=== PATIENT | male | born 1950 | race Caucasian/White ===

== ENCOUNTER 2016-05-24 09:49 | Outpatient (CLI) | payer BC ==
[~2016-05-24] VITALS: Ht 185.4 cm; Wt 120.5 kg
--- NOTE | ~2016-05-24 | HEMODYNAMI ---
PATIENT:FAHEEM TRUJILLO MEDICAL RECORD: [id number] : 52 LOCATION:D.CAT ADMISSION DATE: 05/24/16 Generatedon:05/24/201615:52 Patient name: FAHEEM TRUJILLO Patient #: [id number] SSN: : 1950 Date of study: 05/24/2016 Page: Of Hemodynamic Procedure Report Patient Data Patient Demographics Procedure consent was obtained First Name: FAHEEM Gender: Male Last Name: RONNIE : 1950 [facility] Initial: T Age: 66 year(s) Patient #: [id number] Race: Additional ID: [id number] Contact details Address: [address] [place] [address] State: [place] City: [facility] Zip code: [address] Past Medical History History of disease Date Diagnosis Comments CAD Allergies Allergen Reaction Date Comments Reported Zocor 09/30/2014 Other allergy 05/24/2016 simvastatin Admission Admission Data Admission Date: 05/24/2016 Admission Time: 9:49 Admit Source: Other Insurance Payor: Private health insurance Height (in.): 74 BSA: 2.45 (m2) Height (cm.): 187.96 BMI: 34.02 (kg/m2) Weight (lbs.): 265 Weight (kg.): 120.2 Medications upon Admission Medications Dosage Times Administered Last Remarks per Delivery Day Date and Time Prasugrel Yes 05/24/2016 0:00 Lab Results Lab Result Date: 05/24/2016 Lab Result Time: 13:30 Biochemistry Name Units Result Min Max Creatinine mg/dl 1.1 --(--*-)-- 0.6 1.3 CBC Name Units Result Min Max Hemoglobin g/dl 12.5 *-(----)-- 13.5 17.5 Procedure Procedure Types Cath Procedure Diagnostic Procedure [facility] w/Coronaries PCI Procedure Coronary Stent Initial Procedure Description Procedure Date Procedure Date: 05/24/2016 Procedure Start Time: 15:24 Procedure End Time: 15:38 Procedure Staff Name Function Amari George RT Assembler [employer] Devang Harris RT Scrub Quinn Burris RN Assembler [employer] Mitch Kaur RN Nurse Samuel Tee MD Performing Physician Christophe Anderson RT Monitor Procedure Data Cath Procedure Fluoroscopy Diagnostic fluoroscopy Total fluoroscopy Time: 4.5 time: 4.5 min min Diagnostic fluoroscopy Total fluoroscopy dose: 776 dose: 776 mGy mGy Contrast Material Contrast Material Type Amount (ml) Isovue 300 117 Entry Location Entry Primary Successful Side Size Upsize Upsize Entry Closure Succes sful Closure Location (Fr) 1 (Fr) 2 (Fr) Remarks Device Remarks Femoral Right 5 Fr 7 Fr Exoseal artery Short Estimated blood loss: 10 ml Diagnostic catheters Device Type Used For End Catheter Placement Cordis 5Fr Pigtail Procedure Catheter (MP) Cordis 5Fr JL 4.0 Procedure Catheter (MP) Cordis 5Fr 3DRC Catheter Procedure (MP) Cordis Infinity 5Fr JL 6 Procedure catheter Procedure Complications No complications Procedure Medications Medication Administration Route Dosage Oxygen NC 2 l/min Lidocaine 2% added to field 20 Heparin Flush Bag added to field 2 bags (1000units/500ml NS) 0.9% NaCl I.V. 100 ml/hr Refer to Anesthesia Notes for Sedation Medications Benadryl I.V. 50 mg Heparin Bolus I.V. 5000 units Hemodynamics Rest HGB: 12.5 (g/dl) Heart Rate: 67 (bpm) Snapshots Pre Cath Intra NCS Post Cath Vital Signs Time Heart Resp SPO2 etCO2 GE1hlya Respiration NIBP (mmHg) Rhythm Pain Sedation Rate (ipm) (%) (mmHg) (mmHg) (CO2) (ipm) Status Level (bpm) 14:55:31 68 12 99 39.8 3.7 12 144/86(116) NSR 0 (1 1) 10(A) , No pain 14:59:50 67 16 99 38.3 3.7 16 140/84(115) NSR 0 (1 1) 10(A) , No pain 15:04:06 69 17 96 42.1 0 15 126/76(98) NSR 0 (1 1) 10(A) , No pain 15:08:20 67 15 98 8.2 0 13 118/76(97) NSR 0 (1 1) 10(A) , No pain 15:12:30 71 13 93 36.1 2.2 8 126/84(94) NSR 0 (1 1) 10(A) , No pain 15:16:46 70 22 93 30.1 3.7 19 120/73(91) NSR 0 (1 1) 10(A) , No pain 15:21:01 70 18 94 36.1 3 18 123/70(95) NSR 0 (1 1) 10(A) , No pain 15:25:16 71 24 95 37.6 4.5 13 119/70(98) NSR 0 (1 1) 9(A) , No pain 15:29:33 67 16 97 47.4 3.7 17 118/67(94) NSR 0 (1 1) 8(A) , No pain 15:33:49 73 17 98 38.3 6 18 119/71(88) NSR 0 (1 1) 9(A) , No pain 15:38:03 73 16 97 47.4 4.5 16 131/73(97) NSR 0 (1 1) 10(A) , No pain Medications Time Medication Route Dose Verified Delivered Reason Notes Effectiveness by by 14:59:25 Oxygen NC 2 Samuel Pinaie used for l/min Nay Kaur RN procedure 15:00:08 Lidocaine 2% added 20ml Samuel Buffie used for to vial Nay Kaur RN procedure field 15:00:13 Heparin Flush added 2 Samuel Buffie used for Bag to bags Nay Kaur RN procedure (1000units/500ml field NS) 15:00:22 0.9% NaCl I.V. 100 Samuel Meyer Per physician ml/hr Nay Kaur RN 15:06:52 Refer to Samuel Meyer Anesthesia Notes Nay Kaur RN for Sedation Medications 15:07:01 Benadryl I.V. 50 mg Samuel Buffie used for Nay Kaur RN procedure 15:31:12 Heparin Bolus I.V. 5000 Samuel Meyer for verifi ed units Nay Kaur RN anticoagulation with dr tee Procedure Log Time Note 14:25:43 Quinn Burris RN sent for patient. Start room use. 14:42:16 Admit Source: Other 14:42:52 Time tracking: Regular hours 14:42:56 Plan of Care:Hemodynamics will remain stable., Cardiac rhythm will remain stable., Comfort level will be maintained., Respiratory function will remain adequate., Patient/ family verbilizes understanding of procedure., Procedure tolerated without complication., Recovers from procedure without complications.. 14:43:01 Patient received from Outpatients to [facility] 2 Alert and oriented. Tansferred to table in Supine position. 14:43:12 Warm blankets applied, and katia hugger turned on for patient comfort. 14:43:13 Correct patient and procedure confirmed by team. 14:43:14 Signed procedure consent form obtained from patient. 14:43:15 ECG and BP/O2 sat monitors applied to patient. 14:45:19 Dr Velasquez present and monitoring patient for TIVA. 14:54:24 Vital chart was started 14:54:54 Baseline sample Acquired. 14:56:25 Rhythm: sinus rhythm 14:56:27 Full Disclosure recording started 14:58:54 H&P Date Dictated: 05/24/2016 Within 30 days and on chart., H&P Addendum completed by physician on day of procedure. (MUST COMPLETE FOR ALL OUTPATIENTS). 14:58:55 Pre-op teaching completed and patient verbalized understanding. 14:58:55 Pre-procedure instructions explained to patient. 14:59:00 Family in waiting room. 14:59:02 Patient NPO since Midnight. 14:59:18 Patient allergic to Other allergysimvastatin 14:59:20 Is the patient allergic to Iodine/contrast media? No. 14:59:23 Is patient on blood thinner?Yes 14:59:25 Oxygen 2 l/min NC was given by Mitch Kaur RN; used for procedure; 15:00:08 Lidocaine 2% 20ml vial added to field was given by Mitch Kaur RN; used for procedure; 15:00:11 ACC The patient was administered the following blood thiners within the last 24 hours: ACCEffient 15:00:13 Patient diabetic? Yes. 15:00:13 Heparin Flush Bag (1000units/500ml NS) 2 bags added to field was given by Mitch Kaur RN; used for procedure; 15:00:14 If diabetic: On Metformin? No 15:00:17 Previous problem with sedation/anesthesia? No ? 15:00:18 Snore? Yes 15:00:19 Sleep apnea? Yes 15:00:20 Deviated septum? No 15:00:21 Opens mouth fully? Yes 15:00:22 Sticks out tongue? Yes 15:00:22 0.9% NaCl 100 ml/hr I.V. was given by Mitch Kaur RN; Per physician; 15:00:23 Airway obstruction? No ? 15:00:26 Dentures? No ? 15:00:29 Pre procedure: right dorsailis pedis pulse 2+ Normal; easily identifiable; not easily obliterated 15:00:33 Patient pain scale 0/10 ?. 15:00:55 IV patent on arrival in left wrist with 0.9% NaCl at [facility]. 15:03:14 Lab Result : Hemoglobin 12.5 g/dl 15:03:14 Lab Result : Creatinine 1.1 mg/dl 15:03:18 Lab results completed and on chart. 15:03:22 Right groin area was prepped with chlora-prep and draped in sterile fashion 15:03:24 Alarms reviewed by R. N. 15:03:25 Sharps counted by scrub and verified by R.N. 15:03:33 Use device set Femoral Dx 15:03:48 Acist Hand Control opened to sterile field. 15:03:48 Acist Manifold opened to sterile field. 15:03:49 Tegaderm 4 x 4 opened to sterile field. 15:03:50 Acist Syringe opened to sterile field. 15:03:51 Cardinal Cath Pack opened to sterile field. 15:03:51 Bag Decanter opened to sterile field. 15:03:52 St Vikas 260cm J .035 wire opened to sterile field. 15:03:52 Terumo 5Fr Cheshire Sheath opened to sterile field. 15:03:53 Cordis Infinity 5Fr Multipack catheter opened to sterile field. 15:04:13 ACC Patient presents with Stable Angina CCS Anginal Class 2--Slight limitation of ordinary activity. 15:04:18 Diagnostic Cath status Elective 15:04:43 Patient Weight : 265 lbs 15:04:50 Patient Height : 74 inches 15:04:50 Insurance Payor : Private health insurance 15:06:52 Refer to Anesthesia Notes for Sedation Medications was given by Mitch Kaur RN; ; 15:07:01 Benadryl 50 mg I.V. was given by Mitch Kaur RN; used for procedure; 15:08:09 Zero performed for pressure channel P1 15:23:50 Final Timeout: patient, procedure, and site verified with staff and physician. All members of the team are in agreement. 15::51 --------ALL STOP TIME OUT------ 15:23:52 Right groin site verified by team. 15::57 Physical assessment completed. ASA score P 3 - A patient with severe systemic disease as per Samuel Tee MD. 15::07 Sedation plan: TIVA Propofol 15:24:37 Procedure started. 15:24:41 Local anesthetic to right femoral artery with Lidocaine 2% by Samuel Tee MD.INITIAL ACCESS ONLY 15::53 A 5 Fr sheath was inserted into the Right Femoral artery 15:25:01 A Cordis 5Fr Pigtail Catheter (MP) was advanced over the wire and used for Procedure. 15:25:21 LV gram done using SO 15::24 Injector settings: Ml/sec: 10, Volume: 20, 15::53 EF : 55 % 15:25:55 Catheter exchanged over wire. 15:26:04 A Cordis 5Fr JL 4.0 Catheter (MP) was advanced over the wire and used for Procedure. 15:26:37 Catheter removed. unable to cannulate vessel. 15:27:27 A Cordis 5Fr 3DRC Catheter (MP) was advanced over the wire and used for Procedure. 15:27:32 RCA angiography performed. 15:27:49 Catheter removed. 15:27:56 A Cordis Infinity 5Fr JL 6 catheter was advanced over the wire and used for Procedure. 15:28:12 LCA angiography performed. 15:28:30 Terumo 7Fr Cheshire Sheath opened to sterile field. 15:28:42 Adams Whisper J 300cm 0.014 guide wire opened to sterile field. 15:28:44 CrowdMed BasixCompak Inflation Kit opened to sterile field. 15:29:16 Catavolttronic Launcher 7Fr HS II guide catheter opened to sterile field. 15:29:24 Catheter removed. 15:29:25 Proceeding to intervention. 15:29:41 Sheath upsized to a 7 Fr Short. 15::52 ACC PCI Site: dRCA has 90% stenosis. 15::53 ACC Pre-intervention FELIPE Flow is 1. 15:29:59 7 Fr HS II guide catheter was inserted over the wire 15:30:04 whisper wire advanced. 15:30:07 Wire advanced across lesion. 15:31:12 Heparin Bolus 5000 units I.V. was given by Mitch Kaur RN; for anticoagulation; verified with dr tee 15:33:48 Inflation Number: 1 A Medtronic Resolute 2.75 X 8 stent was prepped and advanced across the R PAV. The stent was deployed at 13 OMER for 0:10 (min:sec). 15:34:08 ACC Post-intervention FELIPE Flow is 3. 15:35:02 Cordis 7Fr Exoseal opened to sterile field. 15:35:07 Wire removed. 15:35:07 Stent catheter was removed intact over wire. 15:35:08 Guide catheter removed. 15:35:15 Sheath removed intact; hemostasis achieved with Exoseal to the Right Femoral artery. 15:35:18 Procedure ended.(Physican Out) 15:35:41 Fluoroscopy time 04.50 minutes. 15:35:45 Fluoroscopy dose: 776 mGy 15:35:45 Flurop Dose total: 776 15:35:49 Contrast amount:Isovue 300 117ml. 15:35:52 Sharps counted by scrub and verified by R.N. 15:36:02 Insertion/operative site no bleeding no hematoma. 15:36:03 Insertion/operative site no bleeding no hematoma. 15:36:06 Post-op/insertion site Right Femoral artery dressed using a 4 x 4 and Tegaderm. 15:36:16 Post right femoral artery:stable, soft, clean and dry 15:37:52 Post Procedure Pulses reassessed and unchanged 15:37:55 Post-procedure physical assessment completed. ASA score P 3 - A patient with severe systemic disease as per Samuel Tee MD. 15:37:58 Post procedure rhythm: unchanged. 15:38:03 Estimated blood loss: 10 ml 15:38:04 Patient needs reinforcement of post procedure teaching. 15:38:04 Post procedure instruction explained to patient.Patient verbalizes understanding. 15:38:11 Procedure type changed to Cath procedure, Diagnostic procedure, LHC, LHC w/Coronaries, PCI procedure, Coronary Stent Initial 15:38:31 Procedure and supply charges have been captured, reviewed, submitted and are correct. 15:38:33 Procedure Complication : No complications 15:38:36 Vital chart was stopped 15:38:38 See physician's report for complete and final results. 15:38:41 Report given to Post Procedure Room. 15:38:44 Patient transfered to Post Procedure Room with Stretcher. 15:38:46 Full Disclosure recording stopped 15:38:46 Procedure ended. 15:38:57 ACC-PCI Only Patient was given prescriptions, or instructed by Samuel Tee MD to start/continue the following medications upon discharge: Effient 15:40:09 End room use (Document Last) 15:49:16 St Vikas Femstop Arch Gold opened to sterile field. 15:50:45 Femstop placed over right femoral artery as a percaution. Bulb not inflated. Pt tends to roll on side. Intervention Summary Intervention Notes Time ActionType Lesion and Equipment Action# Pressure Duration Attributes Used 15:33:48 Place stent R PAV Medtronic 1 13 00:10 Resolute 2.75 X 8 stent Device Usage Item Name Manufacture Quantity Catalog Hospital Part Current Minimal Lot# / Number Charge Number Stock Stock Serial# Code Acist Acist 1 09673 057505 789426 068083 5 Manifold Medical Systems Inc Acist Hand Acist 1 33052 753087 652346 866059 5 Control Medical Systems Inc Tegaderm 4 3M 1 1626W 927041 126237 430719 5 x 4 Acist Acist 1 06282 072141 156247 125328 20 Syringe Medical Systems Inc Bag Microtek 1 2002S 729563 15001 791747 5 [employer]stitution [employer] Cardinal Cardinal [address] 722496 83539 879905 5 Cath Pack Health Terumo 5Fr Terumo 1 [id number] 423147 586401 669339 [address] St Vikas 1 605885 564362 059958 643309 30 260cm J .035 wire Cordis Cardinal 1 [id number] 678539 81122 551275 30 Infinity Health 5Fr Multipack catheter Cordis 5Fr Cardinal 1 [id number] 5 Pigtail Health Catheter (MP) Cordis 5Fr Cardinal 1 194964 5 JL 4.0 Health Catheter (MP) Cordis 5Fr Cardinal 1 146291 5 3DRC Health Catheter (MP) Cordis Cardinal 1 [id number] 261296 380002 396915 5 SCREEMO Health 5Fr JL 6 catheter Terumo 7Fr Terumo 1 [id number] 289964 233101 691029 5 Cheshire Sheath Adams Adams 1 [id number] 422173 832806 861408 5 Whisper J Vascular 300cm 0.014 guide wire [facility] 1 [id number] 958001 313776 939790 15 BasixCompak Medical Inflation Kit Medtronic Medtronic 1 [id number] 192601 603023 911152 0 Launcher 7Fr HS II guide catheter Medtronic Medtronic 1 [id number] 400116 640393 0 [id number] Resolute 2.75 X 8 stent Cordis 7Fr Cardinal 1 [id number] 777520 866606 180252 [address] Vik[address] St Vikas 1 [id number] 223627 687634 651640 5 Femstop Arch Gold Signature Audit Hooven Stage Time Signature Unsigned Intra-Procedure 05/24/2016 Christophe Anderson RT(R) 3:45:13 PM RT(R) 05/24/2016 3:49:12 PM Intra-Procedure 05/24/2016 Christophe Anderson 3:52:05 PM RT(R) Signatures Monitor : Christophe Anderson RT Signature : Date : Time : [place] [place] [address]
[~2016-05-24 09:49] MED LIST: ASPIRIN325 MG PO; CLOBETASOL PROP15 GM TP; CLOBETASOL PROP25 ML TOPICAL; DEXILANT60 MG PO; EFFIENT10 MG PO; FLOMAX0.4 MG PO; GLUCOPHAGE1000 MG; GLUCOPHAGE1000 MG PO; INVOKANA300 MG PO; JANUVIA100 MG PO; LIVALO4 MG PO; PRANDIN2 MG PO; PRILOSEC20 MG PO; PROSCAR5 MG PO; SYNTHROID200 MC1 PO; TEKTURNA150 MG; TEKTURNA150 MG PO; WELCHOL625 MG PO; ZEBETA10 MG PO; ZETIA10 MG PO; ZYLOPRIM300 MG PO
[2016-05-24] MEDS ORDERED: FOLIC ACID1 MG PO (13:45)
[2016-05-24] MEDS ORDERED: FARXIGA10 MG PO (13:46)
[2016-05-24] MEDS ORDERED: TREXALL15 MG PO (13:47)
[2016-05-24] MEDS ORDERED: REPATHA SY140 MG/1 M SC (13:48)
[2016-05-24 14:06] LABS: BASOPHILS 0.6 % (0.0-2.0); EOSINOPHILS 3.3 % (0-7); HEMATOCRIT 39.4 % (42.0-54.0); HEMOGLOBIN 12.5 g/dL (13.5-17.5); IMMATURE GRANULOCYTES 0.3 % (0-5); MCH 30.6 pg (26.0-34.0); MCHC 31.7 g/dL (31.0-37.0); MCV 96.6 fL (80.0-100.0); MONOCYTES 7.7 % (2-11); NEUTROPHILS 61.1 % (40-80); PLATELET COUNT 238 10x3/uL (130-400); RBC 4.08 10x6/uL (4.20-6.10)
[2016-05-24 14:11] VITALS: BP 139/86; Ht 185.4 cm; Wt 120.5 kg
[2016-05-24 14:13] LABS: ANION GAP 11.7 mmol/L (8-16); CALCIUM 9.2 mg/dL (8.5-10.1); CARBON DIOXIDE 28.9 mmol/L (21.0-32.0); CREATININE - SERUM 1.1 mg/dL (0.6-1.3); POTASSIUM - SERUM 4.6 mmol/L (3.5-5.1)
--- NOTE | 2016-05-24 18:05 | NUR ---
VS TAKEN AND PLACE ON POSTOP SHEET
--- NOTE | 2016-05-24 19:57 | NUR ---
1945 IV DC WITH CATHER TIP INTACT
--- NOTE | 2016-05-27 14:16 | OP ---
PATIENT NAME: FAHEEM TRUJILLO MEDICAL RECORD: [id number] :52 LOCATION:D.CAT ADMISSION DATE: SURGEON: YANE VASQUEZ MD DATE OF OPERATION: 05/24/2016 PROCEDURES: 1. PTCA stent RCA, PLV. 2. Left heart catheterization. 3. Selective coronary angiography. 4. Left ventriculogram. INDICATION: Angina and coronary artery disease. PROCEDURE IN DETAIL: After informed consent was obtained and after detailed explanation of risks, benefits as well as alternative therapies, the patient elected to proceed with angiogram and angioplasty. The right femoral area was prepped and draped in normal sterile fashion. The right femoral artery was cannulated via modified Seldinger technique with placement of 7-Bruneian sheath. All catheters exchanged through this sheath. FINDINGS: The left ventriculogram was performed in the standard 30-degree SO view reveals good cardiac wall motion throughout all segments. Overall ejection fraction is estimated at 60%. SELECTIVE CORONARY ANGIOGRAPHY: 1. Left main has a previously placed stent. This is widely patent with no significant restenosis. No disease elsewise. 2. Left anterior descending has previously placed stents; these are widely patent with no significant restenosis. No disease elsewise throughout the LAD or its branches. 3. Left circumflex has moderate irregularities, but no flow-limiting stenosis. 4. Right coronary has previously placed stent that is widely patent with no significant restenosis. However, there is a 90+ percent stenosis of the right PLV branch. PTCA STENT OF THE RIGHT CORONARY PLV BRANCH: The stent used was a 2.5 x 8 mm Resolute taken to 17 atmospheres. Result was 0% residual stenosis. OVERALL IMPRESSION: Successful percutaneous transluminal coronary angioplasty stent of the RCA, PLV going from greater than 90% initial stenosis to 0% residual. TRANSINT:[id number] Voice Confirmation ID: [id number] DOCUMENT ID: [id number] YANE VASQUEZ MD at 1416 CC: [id number] DICTATION DATE: 05/24/16 1539 WHEELCHAIR RENTAL CLERK: 05/24/16 2339 DEP CLI 05/24/16 [place] [address]
--- NOTE | 2016-05-27 14:16 | HP ---
PATIENT: FAHEEM TRUJILLO MEDICAL RECORD: [id number] ACCOUNT: [id number] LOCATION:SUNIL : 52 ADMISSION DATE: 05/24/16 HISTORY AND PHYSICAL EXAMINATION DIAGNOSES: 1. Angina. 2. Coronary artery disease. 3. Previous multivessel percutaneous transluminal coronary angioplasty stent. 4. Hypertension. 5. Hyperlipidemia. HISTORY OF PRESENT ILLNESS: This is a gentleman who presents with increasing anginal symptomatology, has past history of multivessel percutaneous transluminal coronary angioplasty stent. His chest pain is just like that of his previous angina in an escalating unstable fashion. PHYSICAL EXAMINATION: GENERAL APPEARANCE: Well-nourished, well-developed, appears stated age. Level of distress, comfortable. PSYCHIATRIC: Mental status, alert, normal affect. Orientation, oriented to time, place and person. EYES: Lids and conjunctiva, noninjected. No discharge, no pallor. ENT: Lips, teeth, gums, normal dentition. Oropharynx, no cyanosis, no pallor. NECK: Carotid arteries, bilateral normal upstroke, no bruits, no thrills. JUGULAR VEINS: No jugular venous pressure or distention. CERVICAL LYMPH NODES: Nontender, nonenlarged. THYROID: Not enlarged. Nontender. No nodules. LUNGS: Respiratory effort, unlabored. CHEST: Normal curvature. No thoracic deformity. No chest wall tenderness. Percussion, resonant. Auscultation, clear. No wheezes, no rales, no rhonchi. CARDIOVASCULAR: Precordial exam, nondisplaced. No heaves or pericardial thrills. Rate and rhythm, regular. Heart sounds, normal S1, normal S2. No S3, no gallop, no rub. Systolic murmur, not heard. Diastolic murmur, not heard. EXTREMITIES: No cyanosis, no edema. Peripheral pulses, full and equal in all extremities, except as noted. No bruits appreciated. ABDOMEN: Soft, nondistended. Normal aorta. No bruit. Nontender. No masses. Liver, nontender, no hepatomegaly. Spleen, nontender, no splenomegaly. MUSCULOSKELETAL: No joint tenderness. No joint swelling. No erythema. NEUROLOGICAL: Normal gait, normal strength, normal tone. SKIN: Warm and dry. REVIEW OF SYSTEMS: The patient reports easy bruising but reports no swollen glands. The patient reports no fever, no night sweats, no significant weight gain, no significant weight loss. No significant exercise tolerance. The patient reports no dry eyes, no irritation, no vision change. Patient reports no difficulty hearing and no ear pain. Patient reports no frequent nose bleeds or nose and sinus problems. Patient reports on arm pain on exertion. No shortness of breath while lying down. No history of heart murmur. Patient reports no cough, no wheezing or coughing up blood. Patient reports no abdominal pain, no vomiting. Normal appetite. No diarrhea and not vomiting blood. No nausea and no constipation. Patient reports no incontinence. No difficulty urinating. No hematuria. No increased frequency. Patient reports no muscle aches. No weakness, no arthralgias, no back pain. No swelling of the extremities. Patient reports no abnormal mole, no jaundice, no rashes. Reports HISTORY AND PHYSICAL [id number] RONNIE,FAHEEM T no loss of consciousness. No weakness and no numbness. No seizures, dizziness, or headaches. The patient reports no depression, no sleep disturbance, feeling safe in a relationship and no alcohol abuse. Patient reports on fatigue. Reports no runny nose or sinus pressure. No itching, no hives, and no frequent sneezing. OVERALL IMPRESSION: Escalating unstable angina, most likely he has recurrent hemodynamically significant coronary artery disease. We will proceed with coronary angiography. Further care depends upon findings of the angiography. TRANSINT:[id number] Voice Confirmation ID: [id number] DOCUMENT ID: [id number] YANE VASQUEZ MD at 1416 CC: [id number] DICTATION DATE: 05/24/16 1537 ENGINEERING GROUP MANAGER: 05/24/16 1606 DEP CLI 05/24/16 [place] [address] [place] [id number]
== END 2016-05-24 19:58 | disposition home or self-care (01) ==
LOC: D.CATH 09:49
PROVIDERS: Internal Medicine Interventional Cardiology
DX: I25.110 Atherosclerotic heart disease of native coronary artery with unstable angina pectoris (principal); I10 Essential (primary) hypertension; E78.5 Hyperlipidemia, unspecified; Z95.5 Presence of coronary angioplasty implant and graft

== ENCOUNTER → 2017-03-19 08:02 | Outpatient (CLI) | payer BC ==
[~2017-03-19] VITALS: Ht 185.4 cm; Wt 117.3 kg
--- NOTE | ~2017-03-19 | HEMODYNAMI ---
PATIENT:FAHEEM TRUJILLO MEDICAL RECORD: [id number] : 52 LOCATION:DSarithaCAT ADMISSION DATE: 03/19/17 Generatedon:03/19/201710:55 Patient name: FAHEEM TRUJILLO Patient #: [id number] SSN: : 1950 Date of study: 03/19/2017 Page: Of Hemodynamic Procedure Report Patient Data Patient Demographics Procedure consent was obtained First Name: FAHEEM Gender: Male Last Name: RONNIE : 1950 [facility] Initial: T Age: 66 year(s) Patient #: [id number] Race: Additional ID: [id number] Contact details Address: [address] [place] [address] State: [place] City: [facility] Zip code: [address] Past Medical History History of disease Date Diagnosis Comments CAD Allergies Allergen Reaction Date Comments Reported Zocor 09/30/2014 Other allergy 05/24/2016 simvastatin Other allergy 03/19/2017 Simvastatin Admission Admission Data Admission Date: 03/19/2017 Admission Time: 8:02 Lab Results Lab Result Date: 03/19/2017 Lab Result Time: 0:00 Biochemistry Name Units Result Min Max BUN mg/dl 18 --(---*)-- 7 18 Creatinine mg/dl 1.3 --(---*)-- 0.6 1.3 CBC Name Units Result Min Max Hemoglobin g/dl 13.1 -*(----)-- 13.5 17.5 Procedure Procedure Types Cath Procedure Diagnostic Procedure LHC [facility] w/Coronaries PCI Procedure Coronary Stent Coronary Stent Initial Miscellaneous Procedures Moderate Sedation up to 15 minutes Procedure Description Procedure Date Procedure Date: 03/19/2017 Procedure Start Time: 10:26 Procedure End Time: 10:49 Procedure Staff Name Function Samuel Tee MD Performing Physician Devang Harris RT Scrub Jennifer Lucia RT Monitor Quinn Burris RN Nurse Krishna Casas MD Additional personnel Procedure Data Cath Procedure Fluoroscopy Diagnostic fluoroscopy Total fluoroscopy Time: 5.2 time: 5.2 min min Diagnostic fluoroscopy Total fluoroscopy dose: dose: 1361 mGy 1361 mGy Contrast Material Contrast Material Type Amount (ml) Isovue 300 164 Entry Location Entry Primary Successful Side Size Upsize Upsize Entry Closure Succes sful Closure Location (Fr) 1 (Fr) 2 (Fr) Remarks Device Remarks Femoral Right 5 Fr 6 Fr Exoseal artery Short Estimated blood loss: 10 ml Diagnostic catheters Device Type Used For End Catheter Placement Cordis 5Fr Pigtail Procedure Catheter (MP) Cordis 5Fr JL 4.0 Procedure Catheter (MP) Cordis 5Fr 3DRC Catheter Procedure (MP) Procedure Complications No complications Procedure Medications Medication Administration Route Dosage Oxygen NC 6 l/min 0.9% NaCl I.V. 100 ml/hr Refer to Anesthesia Notes for Sedation Medications Heparin Flush Bag added to field 2 bags (1000units/500ml NS) Heparin Bolus I.V. 5000 units Hemodynamics Rest HGB: 13.1 (g/dl) Heart Rate: 84 (bpm) Snapshots Pre Cath Intra NCS Post Cath Vital Signs Time Heart Resp SPO2 etCO2 NIBP (mmHg) Rhythm Pain Sedation Rate (ipm) (%) (mmHg) Status Level (bpm) 10:12:20 78 17 99 0 169/95(137) NSR 0 (11) 10(A) , No pain 10:17:03 74 12 100 34.9 161/95(132) NSR 0 (11) 10(A) , No pain 10:21:46 74 15 100 36.4 149/86(120) NSR 0 (11) 10(A) , No pain 10:26:22 78 15 98 20.4 133/86(109) NSR 0 (11) 10(A) , No pain 10:31:03 82 22 91 9 136/81(105) NSR 0 (11) 10(A) , No pain 10:35:43 81 10 84 28.8 129/77(112) NSR 0 (11) 10(A) , No pain 10:40:44 87 13 96 31.8 141/87(109) NSR 0 (11) 10(A) , No pain 10:46:24 89 12 95 40.1 138/88(111) NSR 0 (11) 10(A) , No pain Medications Time Medication Route Dose Verified Delivered Reason Notes Effectiveness by by 10:15:51 Oxygen NC 6 Samuel Ball Per physician l/min Nay Burris RN 10:16:05 0.9% NaCl I.V. 100 Samuel Quinn Per physician ml/hr Nay Burris RN 10:16:17 Refer to Samuel Ball Anesthesia Notes Nay Burris RN for Sedation Medications 10:16:40 Heparin Flush added 2 Samuel Quinn used for Bag to bags Nay Burris RN procedure (1000units/500ml field NS) 10:35:23 Heparin Bolus I.V. 5000 Samuel Ball for units Nay Burris RN anticoagulation Procedure Log Time Note 9:48:15 Quinn Burris RN sent for patient. Start room use. 9:48:17 Time tracking: Regular hours 9:48:22 Plan of Care:Hemodynamics will remain stable., Cardiac rhythm will remain stable., Comfort level will be maintained., Respiratory function will remain adequate., Patient/ family verbilizes understanding of procedure., Procedure tolerated without complication., Recovers from procedure without complications.. 10:05:08 Patient received from Pre/Post Procedure Room to CCL 1 Alert and oriented. Tansferred to table in Supine position. 10:05:10 Warm blankets applied, and katia hugger turned on for patient comfort. 10:05:10 Correct patient and procedure confirmed by team. 10:05:11 Signed procedure consent form obtained from patient. 10:05:13 ECG and BP/O2 sat monitors applied to patient. 10:11:27 Vital chart was started 10:14:00 Baseline sample Acquired. 10:14:05 Rhythm: sinus rhythm 10:14:07 Full Disclosure recording started 10:14:47 Pre-procedure instructions explained to patient. 10:14:52 Family in patients room. 10:14:56 Patient NPO since Midnight. 10:15:39 Patient allergic to Other allergySimvastatin 10:15:42 Is the patient allergic to Iodine/contrast media? No. 10:15:44 Was the patient premedicated? Yes 10:15:46 Is patient on blood thinner?Yes 10:15:51 Oxygen 6 l/min NC was administered by Quinn Burris RN; Per physician; 10:15:58 ACC The patient was administered the following blood thiners within the last 24 hours: ACCEffient 10:16:02 Patient diabetic? Yes. 10:16:05 0.9% NaCl 100 ml/hr I.V. was administered by Quinn Burris RN; Per physician; 10:16:05 If diabetic: On Metformin? Yes 10:16:09 If on Metformin: Last Dose? 03/18/2017 10:16:15 Snore? Yes 10:16:17 Refer to Anesthesia Notes for Sedation Medications was administered by Quinn Burris RN; ; 10:16:17 Sleep apnea? No 10:16:23 Dentures? No ? 10:16:28 Patient pain scale 0/10 ?. 10:16:35 IV patent on arrival in left hand with 0.9% NaCl at [facility]. 10:16:40 Heparin Flush Bag (1000units/500ml NS) 2 bags added to field was administered by Quinn Burris RN; used for procedure; 10:22:43 Lab results completed and on chart. 10:23:18 Lab Result : Creatinine 1.3 mg/dl 10:23:18 Lab Result : BUN 18 mg/dl 10:23:18 Lab Result : Hemoglobin 13.1 g/dl 10:23:24 Right groin area was prepped with chlora-prep and draped in sterile fashion 10:23:25 Alarms reviewed by R. N. 10:23:26 Sharps counted by scrub and verified by R.N. 10:23:27 Physician arrived 10:23:28 --------ALL STOP TIME OUT------ 10:23:30 Final Timeout: patient, procedure, and site verified with staff and physician. All members of the team are in agreement. 10:23:33 Right groin site verified by team. 10:23:38 Physical assessment completed. ASA score P 2 - A patient with mild systemic disease as per Samuel Tee MD. 10:23:42 Sedation plan: TIVA Medication:Propofol 10:23:49 Krishna Casas MD present and monitoring patient for TIVA. 10:25:01 Use device set Femoral Dx 10:25:03 Acist Syringe opened to sterile field. 10:25:03 Bag Decanter opened to sterile field. 10:25:04 Medline Cath Pack opened to sterile field. 10:25:04 Terumo 5Fr Sells Sheath opened to sterile field. 10:25:04 St Vikas 260cm J .035 wire opened to sterile field. 10:25:06 Acist Hand Control opened to sterile field. 10:25:06 Acist Manifold opened to sterile field. 10:25:07 Diagnostic Infinity 5Fr Multipack catheter opened to sterile field. 10:25:07 Tegaderm 4 x 4 opened to sterile field. 10:25:38 Procedure started. 10:26:22 Local anesthetic to right femoral artery with Lidocaine 2% by Samuel Tee MD.INITIAL ACCESS ONLY 10:26:33 A 5 Fr sheath was inserted into the Right Femoral artery 10::42 Zero performed for pressure channel P1 10::48 Zero performed for pressure channel P1 10::58 Zero performed for pressure channel P1 10:27:06 Zero performed for pressure channel P1 10:27:39 A Cordis 5Fr Pigtail Catheter (MP) was advanced over the wire and used for Procedure. 10:27:42 Zero performed for pressure channel P1 10:27:45 Zero performed for pressure channel P1 10:28:01 EF : 55 % 10:28:05 Catheter removed. 10:28:19 A Cordis 5Fr JL 4.0 Catheter (MP) was advanced over the wire and used for Procedure. 10:28:43 St Vikas 260cm J .035 wire opened to sterile field. 10:28:57 LCA angiography performed. 10:31:23 Catheter removed. 10:31:34 A Cordis 5Fr 3DRC Catheter (MP) was advanced over the wire and used for Procedure. 10:31:39 RCA angiography performed. 10:31:54 Catheter removed. 10:34:54 [place] Sci Choice PT Extra Support 182cm wire opened to sterile field. 10:34:54 Medtronic Launcher 6Fr EBU 4.5 guide catheter opened to sterile field. 10:34:55 Terumo 6Fr Sells Sheath opened to sterile field. 10:34:56 Merit BasixCompak Inflation Kit opened to sterile field. 10:35:05 Proceeding to intervention. 10:35:14 Sheath upsized to a 6 Fr Short. 10:35:23 Heparin Bolus 5000 units I.V. was administered by Quinn Burris RN; for anticoagulation; 10:35:37 6 Fr EBU 4.5 guide catheter was inserted over the wire 10:35:49 EX Support wire advanced. 10:35:51 Wire advanced across lesion. 10:38:40 Inflation Number: 1 A [place] RX 3.0 x 15 stent was prepped and advanced across the Mid LAD. The stent was deployed at 19 OMER for 0:11 (min:sec). 10:41:53 Wire removed. 10:41:53 Guide catheter removed. 10:41:56 Medtronic Launcher 6Fr AR 2.0 guide catheter opened to sterile field. 10:42:15 [facility] Medicine Choice PT Extra Support 182cm wire opened to sterile field. 10:43:10 Punchbowl [place] Eagleye IVUS Catheter opened to sterile field. 10:43:29 6 Fr AR 2 guide catheter was inserted over the wire 10:44:15 Choice pt wire advanced. 10:44:18 Wire advanced across lesion. 10:44:38 IVUS catheter removed over wire. 10:45:07 Wire removed. 10:45:15 Guide catheter removed. 10:45:31 Cordis 6Fr Exoseal opened to sterile field. 10:45:50 Sheath removed intact; hemostasis achieved with Exoseal to the Right Femoral artery. 10:46:56 Procedure ended.(Physican Out) 10:47:23 Fluoroscopy time 05.20 minutes. 10:47:30 Fluoroscopy dose: 1361 mGy 10:47:30 Flurop Dose total: 1361 10:47:35 Contrast amount:Isovue 300 164ml. 10:47:37 Sharps counted by scrub and verified by R.N. 10:47:42 Insertion/operative site no bleeding no hematoma. 10:47:47 Post-op/insertion site Right Femoral artery dressed using a 4 x 4 and Tegaderm. 10:47:51 Post Procedure Pulses reassessed and unchanged 10:47:58 Post-procedure physical assessment completed. ASA score P 2 - A patient with mild systemic disease as per Samuel Tee MD. 10:48:04 Post procedure rhythm: unchanged. 10:48:07 Estimated blood loss: 10 ml 10:48:08 Post procedure instruction explained to patient.Patient verbalizes understanding. 10:48:22 Procedure type changed to Cath procedure, Diagnostic procedure, LHC, LHC w/Coronaries, PCI procedure, Coronary Stent, Coronary Stent Initial, Miscellaneous Procedures, Moderate Sedation up to 15 minutes 10:48:53 Procedure and supply charges have been captured, reviewed, submitted and are correct. 10:49:33 Procedure Complication : No complications 10:49:36 Vital chart was stopped 10:49:37 See physician's report for complete and final results. 10:49:39 Report given to Pre/Post Procedure Room. 10:49:43 Patient transfered to Pre/Post Procedure Room with Stretcher. 10:49:47 Procedure ended. 10:49:47 Full Disclosure recording stopped 10:49:49 End room use (Document Last) Intervention Summary Intervention Notes Time ActionType Lesion and Equipment Action# Pressure Duration Attributes Used 10:38:40 Place stent Mid LAD Riley RX 1 19 00:11 3.0 x 15 stent Device Usage Item Name Manufacture Quantity Catalog Number Hospital Part Current Mini mal Lot# / Charge Number Stock Stock Serial# Code Acist Acist 1 16909 [id number] 506561 552368 20 Syringe Medical Systems Inc Bag Microtek 1 2002S 434459 78337 070773 5 [employer] Medline Cardinal 1 [id number] 285105 22806 607068 5 Cath Pack Health Terumo 5Fr Terumo 1 [id number] 136718 365789 711543 [address] Vikas St Vikas 2 [id number] 139202 807645 753240 30 260cm J .035 wire Acist Hand Acist 1 73391 917694 227272 113378 5 Control Medical Systems Inc Acist Acist 1 48743 936520 111721 287005 5 Manifold Medical Systems Inc Diagnostic Cardinal 1 [id number] 558262 21419 623448 30 Infinity Health 5Fr Multipack catheter Tegaderm 4 3M 1 1626W 785289 947440 923063 5 x 4 Cordis 5Fr Cardinal 1 [id number] 5 Pigtail Health Catheter (MP) Cordis 5Fr Cardinal 1 266698 5 JL 4.0 Health Catheter (MP) Cordis 5Fr Cardinal 1 220783 5 3DRC Health Catheter (MP) [place] Sci [place] 2 [id number] 422870 451332 157040 5 Choice PT Scientific Extra Support 182cm wire Medtronic Medtronic 1 [id number] 624212 55270 695466 0 Launcher 6Fr EBU 4.5 guide catheter Terumo 6Fr Terumo 1 [id number] 913016 605066 699486 40 Sells Sheath Merit Merit 1 [id number] 944007 752987 123888 15 [facility] Medical Inflation Kit [place] RX 3.0 Medtronic 1 [id number] 668667 8796943 137002 5 [id number] x 15 stent Medtronic Medtronic 1 [id number] 451885 99579 059155 1 Launcher 6Fr AR 2.0 guide catheter Prospect Prospect 1 [id number] 764897 623544 503371 8 [place] Eagleye IVUS Catheter Cordis 6Fr Cardinal 1 [id number] 485924 903890 330303 10 [facility] [employer] Signature Audit [place] Stage Time Signature Unsigned Intra-Procedure 03/19/2017 Jennifer Lucia 10:55:50 AM RT(R) Signatures Monitor : Jennifer Lucia Signature : RT Date : Time : [place] [place] [address]
[~2017-03-19 08:02] MED LIST changes: +FARXIGA10 MG PO; +FOLIC ACID1 MG PO; +GLUCOTROL XL 5 M5 MG PO; +REPATHA SY140 MG/1 M SC; +TREXALL15 MG PO; +VITAMIN D31000 UNIT PO
[2017-03-19 10:03] LABS: BASOPHILS 0.3 % (0-2); EOSINOPHILS 3.4 % (0-7); HEMATOCRIT 41.1 % (42.0-54.0); HEMOGLOBIN 13.1 g/dL (13.5-17.5); IMMATURE GRANULOCYTES 0.3 % (0-5); LYMPHOCYTES 24.3 % (15-50); MCH 30.3 pg (26.0-34.0); MCHC 31.9 g/dL (31.0-37.0); MCV 95.1 fL (80.0-100.0); MEAN PLATELET VOLUME 9.9 fL (7.4-10.4); MONOCYTES 7.7 % (2-11); PLATELET COUNT 253 10x3/uL (130-400); RBC 4.32 10x6/uL (4.20-6.10); RDW 15.7 % (11.5-14.5); WBC 6.2 10x3/uL (4.8-10.8)
[2017-03-19 10:04] VITALS: BP 130/79; Ht 185.4 cm; Wt 117.3 kg
[2017-03-19 10:08] LABS: ANION GAP 17.7 mmol/L (8-16); CALCIUM 9.5 mg/dL (8.5-10.1); CARBON DIOXIDE 25.7 mmol/L (21.0-32.0); CREATININE - SERUM 1.3 mg/dL (0.6-1.3); POTASSIUM - SERUM 4.4 mmol/L (3.5-5.1)
--- NOTE | 2017-03-19 11:00 | NUR ---
1100 RECIEVED TO ROOM VIA STRETCHER FROM BICYCLE SERVICE TECHNICIAN WITH REPORTS OF ONE STENT TO THE LAD. 6 FR EXOSEAL R/GROIN CDI NO BLEEDING NO HEMATOMA NOTED. INSTRUCTED PATIENT TO KEEP HEAD FLAT ON PILLOW WITH RLE STRAIGHT
--- NOTE | 2017-03-19 11:15 | NUR ---
1115 VSS WITH NO DISTRESS R/GROIN REMAINS CDI. DR VASQUEZ AT BEDSIDE
--- NOTE | 2017-03-19 11:45 | NUR ---
1145 R/GROIN REMAINS STABLE WITH VSS,PATIENT DENIED CHEST PAIN AT THIS TIME. FAMILY AT BEDSIDE
--- NOTE | 2017-03-19 12:04 | NUR ---
RESTING QUIELTY WITH VSS R/GROIN CDI NO BLEEDING NO HEMATOMA NOTED
--- NOTE | 2017-03-19 12:30 | NUR ---
PATIENT VOIDS 450 CC URINE TO COLLECTION. R/GROIN REMAINS CDI WITH VSS. SANDWICH AND FLUIDS TO BEDSIDE
--- NOTE | 2017-03-19 12:58 | NUR ---
RESTING QUIETLY WITH NO DISTRESS NOTED.VSS AND R/GROIN REMAINS CDI NO BLEEDING NO HEMATOMA NOTED.
--- NOTE | 2017-03-19 13:28 | NUR ---
PATIENT CONTINUES TO SLEEP WITH NO DISTRESS. R/GROIN REMAINS CDI NO BLEEDING NO HEMATOMA NOTED
--- NOTE | 2017-03-19 13:58 | NUR ---
NO CHANGE IN ASSESSMENT CONTINUES TO SLEEP WITH NO DISTRESS
--- NOTE | 2017-03-19 14:31 | NUR ---
REPOSITIONED TO SITTING WITH HOB UP 45 DEGREES R/GROIN REMAINS CDI NO BLEEDING NO HEMATOMA NOTED. PIV REMOVED WITH PRESSURE HELD AND DRESSING APPLIED.VERBAL AND WRITTEN DISCHARGE GONE OVER WITH PATIENT AND FAMILY LEFT VIA WC TO [facility] FOR TRANSPORT HOME
--- NOTE | 2017-03-24 09:02 | OP ---
PATIENT NAME: FAHEEM TRUJILLO MEDICAL RECORD: [id number] :52 LOCATION:D.CAT ADMISSION DATE: SURGEON: YANE VASQUEZ MD DATE OF OPERATION: 03/19/2017 PROCEDURES: 1. PTCA and stent of LAD. 2. Left heart catheterization. 3. Selective coronary angiography. 4. Left ventriculogram. 5. Intravascular ultrasound. INDICATION: Angina and coronary artery disease. PROCEDURE IN DETAIL: After informed consent was obtained and after detailed explanation of risks, benefits as well as alternative therapies, the patient elected to proceed with angiogram and angioplasty. The right femoral area was prepped and draped in normal sterile fashion. The right femoral artery was cannulated via modified Seldinger technique with placement of 6-Thai sheath. All catheters exchanged through this sheath. FINDINGS: The left ventriculogram was performed in standard 30-degree SO view, reveals good cardiac wall motion throughout all segments. Overall ejection fraction estimated at 55%. SELECTIVE CORONARY ANGIOGRAPHY: 1. Left main showed no significant angiographic disease. 2. Left anterior descending has previously placed stents. These are widely patent; however, there is an area of 80% in-stent restenosis in the mid vessel. 3. The left circumflex is widely patent with no significant disease. 4. The right coronary has previously placed stents. These are widely patent. There is a lesion in the mid section, however, this is no greater than 60% on intravascular ultrasound. PTCA AND STENT OF THE LAD: The stent used was a 3.0 x 15 mm Resolute Riley. Result was 0% residual stenosis. OVERALL IMPRESSION: Successful PTCA and stent of the LAD going from 80% in-stent restenosis to 0% residual stenosis. TRANSINT:[id number] Voice Confirmation ID: [id number] DOCUMENT ID: [id number] YANE VASQUEZ MD at 0902 CC: [id number] DICTATION DATE: 03/19/17 1050 FOXING CUTTING MACHINE OPERATOR: 03/19/17 1116 [facility] CLI 03/19/[address] [address]
== END | disposition home or self-care (01) ==
LOC: D.CATH 08:02
PROVIDERS: Internal Medicine Interventional Cardiology
DX: I25.119 Atherosclerotic heart disease of native coronary artery with unspecified angina pectoris (principal); T82.855A Stenosis of coronary artery stent, initial encounter; Z01.812 Encounter for preprocedural laboratory examination

== ENCOUNTER → 2017-05-16 12:43 | Outpatient (CLI) | payer BC ==
[2017-03-19 10:04] VITALS: BMI 34.1
== END | disposition home or self-care (01) ==
LOC: D.MRI 12:43
DX: M25.562 Pain in left knee (principal)

== ENCOUNTER 2017-06-26 05:30 | Day surgery (SDC) | payer BC ==
--- NOTE | ~2017-06-26 | OP ---
PATIENT NAME: FAHEEM TRUJILLO MEDICAL RECORD: [id number] :52 LOCATION:D.OPS ADMISSION DATE: SURGEON: TEJAL MCGRATH MD DATE OF OPERATION: 06/26/2017 PREOPERATIVE DIAGNOSIS: Meniscal root tear of the left knee with potential osteochondral defect. POSTOPERATIVE DIAGNOSIS: Medial meniscal tear with meniscal root tear. PROCEDURES: 1. Medial meniscal repair. 2. Platelet rich plasma - ACP injection into the knee. 3. Stem cell injection into the knee after harvest from the anterior iliac crest. SURGEON: Tejal Mcgrath MD ANESTHESIA: General. INTRAOPERATIVE COMPLICATIONS: None. SUMMARY OF PATHOLOGIC FINDINGS: The root had torn and as such the posterolateral to proximally medial aspect of posterior horn of the meniscus was damaged. 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 The targeting guide for the meniscal root repair from the Arthrex system was placed at 7.5 bienvenido and the reverse cutting drill was placed for the transtibial meniscal repair tunnel. The FlipCutter was then deployed and approximately 5 mm x 6 socket was created. Through the same hole, the nitinol wire was passed to later use for shuttle. Then through the passport cannula, on the medial side of the knee, the meniscal scorpion was utilized to pass 2 hollow fiber loops with excellent grasp of the meniscal root, the nitinol wire passer was then used to pass the 2 tails of this back to the transtibial tunnel. This resulted in excellent repair and lutheran of the meniscal root without having to sacrifice the entire posterior horn of the medial meniscus. These 2 sutures were tied over the button at the level of the periosteum. Having completed this and having already spun on the patient's PRP, PRP was injected into the joint after all wounds were closed. Lastly, the knee was covered with sterile dressings and the anterior superior iliac crest was prepped and draped in routine sterile fashion. A spinal needle was used to anesthetize the periosteum of the anterior superior iliac crest and then the awl from the ____ system from Arthrex was then driven in and excellent return of bone marrow aspirate - stem cells was achieved. This was handed off the field and spun down and the stem cells were concentrated and then injected into the knee as well. Having completed this, final dressings were placed. The patient was awakened, taken to recovery room in stable condition. All final needle and sponge counts were correct. Tourniquet time was approximately 1 hour and 10 minutes. TRANSINT:[id number] Voice Confirmation ID: [id number] DOCUMENT ID: [id number] OPERATIVE REPORT [id number] FAHEEM TRUJILLO MD, TEJAL HOLDER at 0912 CC: [id number] DICTATION DATE: 06/26/17 1127 BUTTER MELTER: 06/26/17 1228 [facility] 06/26/17 [place] [address] [place] [id number]
[~2017-06-26 05:30] MED LIST changes: +ENBREL50 MG/ML SQ; +FOLIC ACID0.8 MG PO; -FOLIC ACID1 MG PO; +HYDROCODONE-APA1 TAB; +MEGA RED PO; -VITAMIN D31000 UNIT PO; +VITAMIN D5000 UNIT PO
[2017-06-26 06:23] LABS: HEMATOCRIT 37.9 % (42.0-54.0); HEMOGLOBIN 12.2 g/dL (13.5-17.5); MCH 30.3 pg (26.0-34.0); MCHC 32.2 g/dL (31.0-37.0); MEAN PLATELET VOLUME 9.6 fL (7.4-10.4); RBC 4.03 10x6/uL (4.20-6.10); RDW 15.1 % (11.5-14.5); WBC 6.5 10x3/uL (4.8-10.8)
[2017-06-26 06:29] VITALS: BP 139/86; BMI 33.3
[2017-06-26 06:59] LABS: ANION GAP 15.7 mmol/L (8-16); CALCIUM 9.5 mg/dL (8.5-10.1); CARBON DIOXIDE 24.8 mmol/L (21.0-32.0); CREATININE - SERUM 1.3 mg/dL (0.6-1.3); POTASSIUM - SERUM 4.5 mmol/L (3.5-5.1)
[2017-06-26] MEDS ORDERED: DILAUDID2 MG PO (09:48)
== END 2017-06-26 12:29 | disposition home or self-care (01) ==
LOC: D.OPS 05:30 → D.PAN 07:30 → D.OPS 07:30
PROVIDERS: Anesthesiology
DX: S83.222A Peripheral tear of medial meniscus, current injury, left knee, initial encounter (principal); I25.10 Atherosclerotic heart disease of native coronary artery without angina pectoris; I10 Essential (primary) hypertension; E11.9 Type 2 diabetes mellitus without complications; K21.9 Gastro-esophageal reflux disease without esophagitis; Z01.812 Encounter for preprocedural laboratory examination
CPT/HCPCS: 29881; 0232T

== ENCOUNTER 2018-07-21 13:45 | Outpatient (CLI) | payer BC ==
[~2018-07-21] VITALS: Ht 185.4 cm; Wt 113.6 kg
--- NOTE | ~2018-07-21 | HEMODYNAMI ---
PATIENT:FAHEEM TRUJILLO MEDICAL RECORD: [id number] : 52 LOCATION:D.CAT ADMISSION DATE: 07/21/18 Generatedon:07/21/201815:44 Patient name: FAHEEM TRUJILLO Patient #: [id number] SSN: : 1950 Date of study: 07/21/2018 Page: Of Hemodynamic Procedure Report Patient Data Patient Demographics Procedure consent was obtained First Name: FAHEEM Gender: Male Last Name: RONNIE : 1950 [facility] Initial: T Age: 68 year(s) Patient #: [id number] Race: Additional ID: [id number] Contact details Address: [address] [place] [address] State: [place] City: [facility] Zip code: [address] Past Medical History History of disease Date Diagnosis Comments CAD Allergies Allergen Reaction Date Comments Reported Zocor 09/30/2014 Other allergy 05/24/2016 simvastatin Other allergy 03/19/2017 Simvastatin Admission Admission Data Admission Date: 07/21/2018 Admission Time: 13:45 Procedure Procedure Types Cath Procedure Diagnostic Procedure LHC LHC w/Coronaries Procedure Description Procedure Date Procedure Date: 07/21/2018 Procedure Start Time: 15:24 Procedure End Time: 15:32 Procedure Staff Name Function Samuel Tee MD Performing Physician Chester Castaneda RT Monitor Elizabeth Ren RT Scrub Mitch Kaur RN Nurse Procedure Data Cath Procedure Fluoroscopy Diagnostic fluoroscopy Total fluoroscopy Time: 1.1 time: 1.1 min min Diagnostic fluoroscopy Total fluoroscopy dose: 587 dose: 587 mGy mGy Contrast Material Contrast Material Type Amount (ml) Isovue 300 57 Entry Location Entry Primary Successful Side Size Upsize Upsize Entry Closure Succes sful Closure Location (Fr) 1 (Fr) 2 (Fr) Remarks Device Remarks Femoral Right 5 Fr Exoseal artery Diagnostic catheters Device Type Used For End Catheter Placement DIAGNOSTIC Pigtail 5Fr LV Angiography catheter ([id number]) DIAGNOSTIC JL 5 5Fr Left Coronary catheter ([id number]) Angiography DIAGNOSTIC 3DRC 5Fr Right Coronary catheter ([id number]) Angiography Procedure Complications No complications Procedure Medications Medication Administration Route Dosage Oxygen etCO2 Nasal cannula 2 l/min Lidocaine 2% added to field 20 Heparin Flush Bag added to field 2 bags (1000units/500ml NS) 0.9% NaCl I.V. 100 ml/hr Benadryl I.V. 50 mg Refer to Anesthesia Notes for Sedation Medications Hemodynamics Rest Heart Rate: 73 (bpm) Pressure Samples Time Site Value (mmHg) Purpose Heart Use Rate(bpm) 15:25 LV 68/24,22 Snapshot 79 Snapshots Pre Cath Intra NCS Post Cath Vital Signs Time Heart Resp SPO2 etCO2 NIBP (mmHg) Rhythm Pain Sedation Rate (ipm) (%) (mmHg) Status Level (bpm) 15:12:36 73 16 97 34 150/91(122) NSR 0 (11) 10(A) , No pain 15:16:58 90 15 95 27.2 138/77(107) NSR 0 (11) 10(A) , No pain 15:19:15 74 17 97 37.8 137/82(111) NSR 0 (11) 10(A) , No pain 15:21:37 75 14 98 1.5 142/86(110) NSR 0 (11) 10(A) , No pain 15:24:04 72 17 97 35.5 137/75(109) NSR 0 (11) 9(A) , No pain 15:26:23 74 18 98 33.2 122/83(105) NSR 0 (11) 9(A) , No pain 15:28:39 75 19 98 35.5 130/81(114) NSR 0 (11) 9(A) , No pain 15:30:58 74 23 99 21.1 133/88(119) NSR 0 (11) 9(A) , No pain 15:35:18 77 29 97 27.2 No Cuff NSR 0 (11) 9(A) , No pain 15:37:33 74 18 98 30.9 No Cuff NSR 0 (11) 10(A) , No pain 15:38:59 84 20 98 31.7 104/93(98) NSR 0 (11) 10(A) , No pain Medications Time Medication Route Dose Verified Delivered Reason Notes E ffectiveness by by 15:12:55 Oxygen etCO2 2 Samuel Meyer used for Nasal l/min Nay Kaur RN procedure cannula 15:13:01 Lidocaine 2% added 20ml Samuel Baker for local to vial Nay Tee MD anesthetic field 15:13:07 Heparin Flush added 2 Samuel Samuel used for Bag to bags Nay Tee MD procedure (1000units/500ml field NS) 15:13:21 0.9% NaCl I.V. 100 Samuelolena Meyer Per ml/hr Nay Kaur RN physician 15:21:05 Refer to Samuel Meyer Anesthesia Notes Nay Kaur RN for Sedation Medications 15:21:29 Benadryl I.V. 50 mg Samuel Meyer used for benadryl Nay Kaur RN procedure from pre op Procedure Log Time Note 14:51:34 Diagnostic Cath Status : Elective 14:55:23 Time tracking: Regular hours (M-F 7:00 - 5:00) 14:55:30 Plan of Care:Hemodynamics will remain stable., Cardiac rhythm will remain stable., Comfort level will be maintained., Respiratory function will remain adequate., Patient/ family verbilizes understanding of procedure., Procedure tolerated without complication., Recovers from procedure without complications.. 14:56:51 Mitch Kaur RN sent for patient. Start room use. 15:05:58 Patient received from Pre/Post Procedure Room to CCL 1 Alert and oriented. Tansferred to table in Supine position. 15:06:00 Warm blankets applied, and katia hugger turned on for patient comfort. 15:06:00 Correct patient and procedure confirmed by team. 15:06:02 Signed procedure consent form obtained from patient. 15:06:03 ECG and BP/O2 sat monitors applied to patient. 15:12:27 Vital chart was started 15:12:55 Oxygen 2 l/min etCO2 Nasal cannula was administered by Mitch Kaur RN; used for procedure; 15:13: Lidocaine 2% 20ml vial added to field was administered by Samuel Tee MD; for local anesthetic; 15:13:07 Heparin Flush Bag (1000units/500ml NS) 2 bags added to field was administered by Samuel Tee MD; used for procedure; 15:13:21 0.9% NaCl 100 ml/hr I.V. was administered by Buffie Kaur RN; Per physician; 15:17:54 Baseline sample Acquired. 15:17:57 Rhythm: sinus rhythm 15:17:58 Full Disclosure recording started 15:18:24 Pre-procedure instructions explained to patient. 15:18:26 Pre-op teaching completed and patient verbalized understanding. 15:18:29 Family in waiting room. 15:18:30 Patient NPO since Midnight. 15:19:13 Is the patient allergic to Iodine/contrast media? No. 15:19:17 Is patient on blood thinner?Yes 15:19:19 ACC The patient was administered the following blood thiners within the last 24 hours: ACCEffient 15:19:21 Patient diabetic? Yes. 15:19:22 If diabetic: On Metformin? Yes 15:19:26 If on Metformin: Last Dose? 07/20/2018 15:19:28 ----Pre-sedation anethsthesia assessment.---- 15:19:30 Previous problem with sedation/anesthesia? No ? 15:19:32 Snore? Yes 15:19:33 Sleep apnea? Yes 15:19:34 Deviated septum? No 15:19:36 Opens mouth fully? Yes 15:19:38 Sticks out tongue? Yes 15:19:40 Airway obstruction? No ? 15:19:42 Dentures? No ? 15:19:45 Pre procedure: right dorsailis pedis pulse 2+ Normal; easily identifiable; not easily obliterated 15:19:48 Patient pain scale 0/10 ?. 15:20:11 IV patent on arrival in left antecubital with 0.9% NaCl at 10ml/hr. 15:20:16 Lab results completed and on chart. 15:20:19 Right groin area was prepped with chlora-prep and draped in sterile fashion 15:20:20 Alarms reviewed by R. N. 15:20:21 Sharps counted by scrub and verified by R.N. 15:20:21 Physician arrived 15:21:05 Refer to Anesthesia Notes for Sedation Medications was administered by Mitch Kaur RN; ; 15:: Physician arrived 15::28 --------ALL STOP TIME OUT------ 15::29 Benadryl 50 mg I.V. was administered by Buffie Kaur RN; used for procedure; richie from pre op 15:21:29 Final Timeout: patient, procedure, and site verified with staff and physician. All members of the team are in agreement. 15:21:54 Right groin site verified by team. 15:21:59 Maximum allowable Isovue 300 dose 300ml. Physician notified. (300ml for normal creatinines. For patients with creatinine of 1.7 or higher multiply weight(kg) x 5 divided by creatinine.) 15:22:05 Fire Safety Assessment: A--An alcohol-based skin anteseptic being used preoperatively., B--The operative or invasive procedure is being performed above the xiphoid process or in the oropharynx., D--An ESU, laser, or fiber-optic light is being used. 15:22:12 Physical assessment completed. ASA score P 2 - A patient with mild systemic disease as per Samuel Tee MD. 15:22:17 Sedation plan: IV Moderate Sedation Medication:Versed, Fentanyl 15:22:33 Use device set Femoral Dx 15:22:35 ACIST Syringe (07968) opened to sterile field. 15:22:35 Bag Decanter (2002S) opened to sterile field. 15:22:35 Medline Cath Pack ([id number]) opened to sterile field. 15:22:36 DIAGNOSTIC WIRE .035 260cm J wire (395390) opened to sterile field. 15:22:38 ACIST Hand Control (71095) opened to sterile field. 15:22:38 ACIST Manifold (57341) opened to sterile field. 15:22:39 Tegaderm 4 x 4 (1626W) opened to sterile field. 15:22:41 SHEATH 5FR Braymer (HIX054) opened to sterile field. 15:23:38 Procedure started. 15:24:03 Zero performed for pressure channel P1 15:24:07 Zero performed for pressure channel P1 15:24:13 Zero performed for pressure channel P1 15:24:24 Local anesthetic to right femoral artery with Lidocaine 2% by Samuel Tee MD.INITIAL ACCESS ONLY 15:24:34 A 5 Fr sheath was inserted into the Right Femoral artery 15:25:28 A DIAGNOSTIC Pigtail 5Fr catheter (022126W) was advanced over the wire and used for LV Angiography. 15:25:31 LV angiography performed. 15::42 LV gram done using SO 15::47 EF : 55 % 15::52 Catheter removed. 15:26:11 A DIAGNOSTIC JL 5 5Fr catheter (041143D) was advanced over the wire and used for Left Coronary Angiography. 15:26:15 LCA angiography performed. 15:27:21 Catheter removed. 15::27 A DIAGNOSTIC 3DRC 5Fr catheter (715689Y) was advanced over the wire and used for Right Coronary Angiography. 15:29:03 RCA angiography performed. 15:29:04 Catheter removed. 15:29:18 EXOSEAL 5Fr (EX500) opened to sterile field. 15:30:12 Contrast amount:Isovue 300 57ml. 15:30:21 Sheath removed intact; hemostasis achieved with Exoseal to the Right Femoral artery. 15:30:22 Procedure ended.(Physican Out) 15:30:42 Fluoroscopy time 01.10 minutes. 15:30:45 Fluoroscopy dose: 587 mGy 15:30:49 Flurop Dose total: 587 15:30:51 Sharps counted by scrub and verified by R.N. 15:30:51 Insertion/operative site no bleeding no hematoma. 15:30:54 Post-op/insertion site Right Femoral artery dressed using a 4 x 4 and Tegaderm. 15:30:58 Post right femoral artery:stable 15:30:59 Post Procedure Pulses reassessed and unchanged 15:31:02 Post procedure: right dorsailis pedis pulse 1+ Palpable, but thready & weak; easily obliterated. 15:31:06 Post procedure rhythm: sinus rhythm 15:31:09 Post procedure instruction explained to patient.Patient verbalizes understanding. 15:32:09 Patient needs reinforcement of post procedure teaching. 15:32:10 Procedure and supply charges have been captured, reviewed, submitted and are correct. 15:32:24 Procedure Complication : No complications 15:32:27 Vital chart was stopped 15:32:28 See physician's report for complete and final results. 15:32:30 Report given to Pre/Post Procedure Room. 15:32:33 Patient transfered to Pre/Post Procedure Room with Stretcher. 15:32:35 Procedure ended. 15:32:35 Full Disclosure recording stopped 15:32:37 End room use (Document Last) Device Usage Item Name Manufacture Quantity Catalog Hospital Part Current Minimal L ot# / Number Charge Number Stock Stock Serial# Code ACIST Acist 1 19227 221241 713623 481025 20 Syringe Medical (62173) Systems Inc Bag Microtek 1 2001S 358608 51402 281736 5 Decanter Medical Inc. () Medline Medline 1 [id number] 416782 05918 280006 5 Cath Pack ([id number]) DIAGNOSTIC St Vikas 1 864401 202049 985514 565023 30 WIRE .035 260cm J wire (320299) ACIST Hand Acist 1 84958 147568 255325 199151 5 Control Medical (79702) Systems Inc ACIST Acist 1 18370 410259 965611 683268 5 Manifold Medical (89351) Systems Inc Tegaderm 4 3M 1 1626W 414867 866784 673290 5 x 4 (1626W) SHEATH 5FR Terumo 1 ZFH180 064482 123255 365194 5 Braymer (HHD385) DIAGNOSTIC Cardinal 1 [id number] 131283 482840 264955 5 Pigtail 5Fr Health catheter (906504S) DIAGNOSTIC Cardinal 1 600676T 008254 100835 445091 5 JL 5 5Fr Health catheter (241840P) DIAGNOSTIC Cardinal 1 [id number] 849925 643927 431076 9 3DRC 5Fr Health catheter (027927U) EXOSEAL 5Fr Cardinal 1 EX500 112747 748425 914977 10 (EX500) Health Signature Audit [place] Stage Time Signature Unsigned Intra-Procedure 07/21/2018 Chester Castaneda RT(R) 3:43:59 PM Signatures Monitor : Chester Castaneda RT Signature : Date : Time : [place] [id number] [place] [address]
[2018-07-21 13:24] VITALS: BP 133/83; Ht 185.4 cm; Wt 113.6 kg
[~2018-07-21 13:45] MED LIST changes: +DILAUDID2 MG PO; +GLIPIZIDE10 MG PO; +VITAMIN D2000 UNIT PO
[2018-07-21 13:56] LABS: BASOPHILS 0.7 % (0-2); EOSINOPHILS 2.5 % (0-7); HEMATOCRIT 38.8 % (42.0-54.0); HEMOGLOBIN 12.7 g/dL (13.5-17.5); IMMATURE GRANULOCYTES 0.6 % (0-5); LYMPHOCYTES 28.8 % (15-50); MCH 30.5 pg (26.0-34.0); MCHC 32.7 g/dL (31.0-37.0); MCV 93.3 fL (80.0-100.0); MEAN PLATELET VOLUME 10.2 fL (7.4-10.4); MONOCYTES 7.7 % (2-11); NEUTROPHILS 59.7 % (40-80); PLATELET COUNT 246 10x3/uL (130-400); RBC 4.16 10x6/uL (4.20-6.10); RDW 14.8 % (11.5-14.5); WBC 6.9 10x3/uL (4.8-10.8)
[2018-07-21 13:58] LABS: CALCIUM 9.1 mg/dL (8.5-10.1); CARBON DIOXIDE 25.4 mmol/L (21.0-32.0); CREATININE - SERUM 1.3 mg/dL (0.6-1.3); POTASSIUM - SERUM 4.4 mmol/L (3.5-5.1)
--- NOTE | 2018-07-21 16:00 | NUR ---
RIGHT GROIN DRESSING C/D/I. NO S/S OF HEMATOMA NOTED. VSS. FAMILY AT BEDSIDE
--- NOTE | 2018-07-21 16:30 | NUR ---
HEAD OF BED INC TO 30 DEGREES. PT TOLERATED WELL. RIGHT GROIN DRESSING C/D/I. NO S/S OF HEMATOMA NOTED. VSS. FAMILY AT BEDSIDE. PT SET UP WITH DRINK AND FOOD.
--- NOTE | 2018-07-21 17:00 | NUR ---
LEFT AC PIV D/C'D WITH CATH TIP INTACT. PT TOLERATED WELL. INSTRUCTED TO GET UP AND GET DRESSED. FAMILY AT BEDSIDE TO ASSIST.
--- NOTE | 2018-07-21 17:15 | NUR ---
DISCUSSED DISCHARGE INSTRUCTIONS. RIGHT GROIN DRESSING C/D/I. NO S/S OF HEMATOMA NOTED.
--- NOTE | 2018-07-24 15:03 | OP ---
PATIENT NAME: FAHEEM TRUJILLO MEDICAL RECORD: [id number] :52 LOCATION:D.CAT ADMISSION DATE: SURGEON: YANE VASQUEZ MD DATE OF OPERATION: 07/21/2018 PROCEDURES: 1. Left heart catheterization. 2. Selective coronary angiography. 3. Left ventriculogram. INDICATION: Angina and coronary artery disease. DESCRIPTION OF PROCEDURE: After informed consent was obtained with detailed description of risks and benefits as well as alternative therapies, the patient elected to proceed with angiogram and heart catheterization. The right femoral area was prepped and draped in normal sterile fashion. The right femoral artery was cannulated via modified Seldinger technique with placement of 5-Tajik sheath. All catheters were exchanged through this sheath. FINDINGS: Left ventriculogram performed in standard 30-degree SO view reveals good cardiac wall motion throughout all segments. Overall ejection fraction is estimated at 60%. SELECTIVE CORONARY ANGIOGRAPHY: 1. Left main is with no significant angiographic disease. Previously placed stent is widely patent. 2. Left anterior descending has previously placed stents. These are widely patent with no significant restenosis. No disease elsewise at the LAD or its branches. 4. Left circumflex has moderate irregularities, but no flow-limiting stenosis. 5. Right coronary has previously placed stents. These are widely patent with no significant restenosis. No disease elsewise at the RCA or its branches. OVERALL IMPRESSION: Wide patency of the previously placed stents in left main, LAD, and RCA. No disease elsewise. Normal LV function. Continue medical management of coronary artery disease and cardiac risk factors. TRANSINT:[id number] Voice Confirmation ID: [id number] DOCUMENT ID: [id number] YANE VASQUEZ MD at 1503 CC: [id number] DICTATION DATE: 07/21/18 1542 ORACLE SOA DEVELOPER: 07/21/18 1754 DEP CLI 07/21/18 [facility] [address] [place] [id number]
--- NOTE | 2018-07-24 15:03 | CN ---
PATIENT NAME:FAHEEM MURPHY MEDICAL RECORD: [id number] : 52 LOCATION:D.CAT ADMIT DATE: ACCOUNT: [id number] CONSULTING PHYSICIAN: YANE VASQUEZ MD REFERRING PHYSICIAN: YANE VASQUEZ MD DATE OF CONSULTATION: 07/21/2018 CARDIOLOGY CONSULT DIAGNOSES: 1. Angina. 2. Coronary artery disease. 3. Previous multivessel PTCA and stent. 4. Hypertension. 5. Hyperlipidemia. 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 He is being evaluated as well for possible knee replacement. Due to shortness of breath and some minor chest discomfort, this is a change in his cardiac status. We will proceed with coronary angiography. PHYSICAL EXAMINATION: GENERAL APPEARANCE: Well-nourished, well-developed, appears stated age. Level of distress, comfortable. PSYCHIATRIC: Mental status, alert, normal affect. Orientation, oriented to time, place and person. EYES: Lids and conjunctiva, noninjected. No discharge, no pallor. ENT: Lips, teeth, gums, normal dentition. Oropharynx, no cyanosis, no pallor. NECK: Carotid arteries, bilateral normal upstroke, no bruits, no thrills. JUGULAR VEINS: No jugular venous pressure or distention. CERVICAL LYMPH NODES: Nontender, nonenlarged. THYROID: Not enlarged. Nontender. No nodules. LUNGS: Respiratory effort, unlabored. CHEST: Normal curvature. No thoracic deformity. No chest wall tenderness. Percussion, resonant. Auscultation, clear. No wheezes, no rales, no rhonchi. CARDIOVASCULAR: Precordial exam, nondisplaced. No heaves or pericardial thrills. Rate and rhythm, regular. Heart sounds, normal S1, normal S2. No S3, no gallop, no rub. Systolic murmur, not heard. Diastolic murmur, not heard. EXTREMITIES: No cyanosis, no edema. Peripheral pulses, full and equal in all extremities, except as noted. No bruits appreciated. ABDOMEN: Soft, nondistended. Normal aorta. No bruit. Nontender. No masses. Liver, nontender, no hepatomegaly. Spleen, nontender, no splenomegaly. MUSCULOSKELETAL: No joint tenderness. No joint swelling. No erythema. NEUROLOGICAL: Normal gait, normal strength, normal tone. SKIN: Warm and dry. OVERALL IMPRESSION: Anginal symptomatology and shortness of breath. We will proceed with coronary angiography. Further care depends upon findings of the angiography. TRANSINT:[id number] Voice Confirmation ID: [id number] DOCUMENT ID: [id number] CONSULT REPORT [id number] FAHEEM MURPHY, YANE DYKES at 1503 CC: [id number] DICTATION DATE: 07/21/18 1537 TIME BUYER: 07/21/18 1748 DEP CLI 07/21/18 [place] [id number] [place] [address]
== END 2018-07-21 17:15 | disposition home or self-care (01) ==
LOC: D.CATH 13:45
PROVIDERS: ATTEND Internal Medicine Interventional Cardiology
DX: I25.119 Atherosclerotic heart disease of native coronary artery with unspecified angina pectoris (principal); Z95.5 Presence of coronary angioplasty implant and graft; Z01.812 Encounter for preprocedural laboratory examination

== ENCOUNTER 2018-07-23 13:22 | Inpatient (IN) | payer BC ==
[~2018-07-23] VITALS: Ht 185.4 cm; Wt 115.5 kg
--- NOTE | ~2018-07-23 | OP ---
PATIENT NAME: FAHEEM TRUJILLO MEDICAL RECORD: [id number] :52 LOCATION:[facility]HA [place].CV06 ADMISSION DATE:07/30/18 SURGEON: TEJAL MCGRATH MD DATE OF OPERATION: 07/30/2018 PREOPERATIVE DIAGNOSIS: Degenerative arthritis of the left knee. POSTOPERATIVE DIAGNOSIS: Degenerative arthritis of the left knee. PROCEDURE: Left total knee arthroplasty. SURGEON: Tejal Mcgrath MD ANESTHESIOLOGIST: Krishna Casas MD INTRAOPERATIVE COMPLICATIONS: None. SUMMARY OF PATHOLOGIC FINDINGS: The patient had severe medial joint line arthritis with tongue and groove deformity, consistent with preoperative patient's pain. Of note, the patient's prior fixed meniscal root was in good condition; however, the patient had severe grade 4+ chondromalacia. IMPLANTS USED: Zeferino Triathlon cemented size 6 tibial baseplate, size 6 distal femur, size 13 tibial bearing, and a symmetric patella size 33 x 9; all cemented. OPERATIVE SUMMARY IN DETAIL: After obtaining the appropriate preoperative orthopedic surgery consent as well as anesthetic consultation, evaluation, and clearance, the patient was brought to the operating room and placed on the operating table in the supine position. After general laryngeal mask was administered, tourniquet was placed about the proximal aspect of the patient's left lower extremity. The left lower extremity was then prepped and draped in routine sterile fashion. The leg was elevated, exsanguinated, and the tourniquet was inflated to 350 mmHg. Routine midline incision was taken down for paramedian arthrotomy. Patella was everted. Distal femur was exposed. Pathologic findings as noted above were seen. Standard soft tissue excision was then followed by creation of intramedullary guide hole of the femur. Intramedullary guided distal femoral cut was then followed by complete exposure of the proximal tibia. Residual menisci were removed. Intramedullary guide hole was again created in the tibia. Proximal tibia was cut followed by measurements taken followed by chamfer cuts of the distal femur. Trials were put into place and taken through range of motion of those that correspond to the above size implants. At this point, the trials were removed. Patella was everted and the degenerative articular aspect of the patella was excised in preparation for size 33 x 9 patella. Final patellar preparations were followed by copious pulsatile lavage irrigation of the entire knee joint cavity. The bone ends were then dried and then the components were cemented into place. All excess cement was removed. After the cement was allowed to harden, the knee was taken through range of motion and found to be stable in all planes including flexion, extension, varus, and valgus as well as good patellar tracking. At this point, within the knee, we placed a gram of vancomycin, a gram of clindamycin, and a gram of TXA. Paramedian arthrotomy was closed by me using a [id number] interrupted #2 Ethibond. This was then followed by #1 Vicryl, 2-0 Vicryl, and skin santos. Prevena dressing was then placed. Tourniquet was deflated. The patient was awakened and taken to recovery room in stable OPERATIVE REPORT [id number] FAHEEM TRUJILLO condition. All final needle and sponge counts were correct. TRANSINT:[id number] Voice Confirmation ID: [id number] DOCUMENT ID: [id number] RAMILA DYKES, TEJAL HOLDER CC: [id number] DICTATION DATE: 08/03/18919 RESIDENT MEDICAL OFFICER: 08/03/18 1202 DIS IN 08/02/18 [facility] [address] [place] [address]
--- NOTE | ~2018-07-23 | CN ---
PATIENT NAME:FAHEEM MURPHY MEDICAL RECORD: [id number] : 52 LOCATION:JEF[facility].CV06 ADMIT DATE: 07/30/18 ACCOUNT: [id number] CONSULTING PHYSICIAN: YANE VASQUEZ MD REFERRING PHYSICIAN: TEJAL MCGRATH MD DATE OF CONSULTATION: 07/30/2018 ADMITTING DIAGNOSES: 1. Postop knee surgery. 2. Coronary artery disease. 3. Hypertension. 4. Hyperlipidemia. 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 He was previously on Effient for coronary artery disease. Last cardiac stent has been over 6 months ago. He has been off the Effient 5 days prior to the surgery. He has had no cardiac complications, no dysrhythmias, no chest discomfort, no EKG changes. PHYSICAL EXAMINATION: GENERAL APPEARANCE: Well-nourished, well-developed, appears stated age. Level of distress, comfortable. PSYCHIATRIC: Mental status, alert, normal affect. Orientation, oriented to time, place and person. EYES: Lids and conjunctiva, noninjected. No discharge, no pallor. ENT: Lips, teeth, gums, normal dentition. Oropharynx, no cyanosis, no pallor. NECK: Carotid arteries, bilateral normal upstroke, no bruits, no thrills. JUGULAR VEINS: No jugular venous pressure or distention. CERVICAL LYMPH NODES: Nontender, nonenlarged. THYROID: Not enlarged. Nontender. No nodules. LUNGS: Respiratory effort, unlabored. CHEST: Normal curvature. No thoracic deformity. No chest wall tenderness. Percussion, resonant. Auscultation, clear. No wheezes, no rales, no rhonchi. CARDIOVASCULAR: Precordial exam, nondisplaced. No heaves or pericardial thrills. Rate and rhythm, regular. Heart sounds, normal S1, normal S2. No S3, no gallop, no rub. Systolic murmur, not heard. Diastolic murmur, not heard. EXTREMITIES: No cyanosis, no edema. Peripheral pulses, full and equal in all extremities, except as noted. No bruits appreciated. ABDOMEN: Soft, nondistended. Normal aorta. No bruit. Nontender. No masses. Liver, nontender, no hepatomegaly. Spleen, nontender, no splenomegaly. MUSCULOSKELETAL: No joint tenderness. No joint swelling. No erythema. NEUROLOGICAL: Normal gait, normal strength, normal tone. SKIN: Warm and dry. OVERALL IMPRESSION: Coronary artery disease, stable at this time. We would restart the Effient tomorrow loading with 60 mg, continuing 10 mg a day thereafter as long as there is no bleeding complications from an orthopedic standpoint. TRANSINT:[id number] Voice Confirmation ID: [id number] DOCUMENT ID: [id number] CONSULT REPORT [id number] FAHEEM MURPHY JEFFREY MD CC: [id number] DICTATION DATE: 07/30/18 1346 TICKET PRINTER AND TAGGER: 07/30/18 1406 ADM IN [facility] [address] [place] [id number]
[~2018-07-23 13:22] MED LIST changes: -ASPIRIN325 MG PO; +ASPIRIN81 MG PO; +ENBREL25 MG/0.5 SQ; -ENBREL50 MG/ML SQ; -SYNTHROID200 MC1 PO; +SYNTHROID25 MCG PO; -VITAMIN D2000 UNIT PO
[2018-07-29] MEDS ORDERED: GLUCOPHAGE1000 MG PO (10:35)
[2018-07-29 10:38] LABS: BASOPHILS 0.7 % (0-2); EOSINOPHILS 3.7 % (0-7); HEMATOCRIT 39.9 % (42.0-54.0); HEMOGLOBIN 12.7 g/dL (13.5-17.5); IMMATURE GRANULOCYTES 0.6 % (0-5); LYMPHOCYTES 31.9 % (15-50); MCH 29.9 pg (26.0-34.0); MCHC 31.8 g/dL (31.0-37.0); MCV 93.9 fL (80.0-100.0); MEAN PLATELET VOLUME 9.8 fL (7.4-10.4); MONOCYTES 8.6 % (2-11); NEUTROPHILS 54.5 % (40-80); PLATELET COUNT 252 10x3/uL (130-400); RBC 4.25 10x6/uL (4.20-6.10); RDW 14.8 % (11.5-14.5); WBC 7.1 10x3/uL (4.8-10.8)
[2018-07-29 11:34] LABS: APPEARANCE CLEAR (CLEAR); BILIRUBIN NEGATIVE (NEGATIVE); COLOR YELLOW (YELLOW); GLUCOSE 1000 mg/dL (NEGATIVE); KETONE SMALL mg/dL (NEGATIVE); NITRITE NEGATIVE (NEGATIVE); PROTEIN NEGATIVE (NEGATIVE); SPECIFIC GRAVITY 1.015 (1.005-1.020); UROBILINOGEN NORMAL (NORMAL)
[2018-07-30] VITALS (17 sets, daily range): BP systolic 96–147; BP diastolic 43–73; Ht 185.4 cm; Wt 115.5 kg
--- NOTE | 2018-07-30 08:17 | NUR ---
PLASMA BLADE SET 6/8 BOVIE PAD RIGHT THIGH [id number] EXP 03/09/2020
--- NOTE | 2018-07-30 10:32 | NUR ---
RECIEVED PT FROM RECOVERY ROOM. SLEEPING. ASSESSMENT COMPLETE PER FLOWSHEET. DILAUDID INFORMATION ASSURANCE SET UP WITH KASSANDRA BARNETT.
--- NOTE | 2018-07-30 15:00 | NUR ---
CPM ON PER PHYSICAL THERAPY.
--- NOTE | 2018-07-30 16:00 | NUR ---
PARTIAL BATH AND LINENS CHANGED.
--- NOTE | 2018-07-30 18:57 | MORECARE ---
CASE MANAGEMENT DISCHARGE SUMMARY PATIENT: FAHEEM TRUJILLO T UNIT: [id number] ADM DATE: 07/30/18 AGE: 68 : 51 SEX: M ROOM/BED: D.[facility] AUTHOR: DEREK ROSS PHYSICIAN: REFERRING PHYSICIAN: TEJAL MCGRATH MD DATE OF SERVICE: 07/30/18 Discharge Plan Patient Name: FAHEEM TRUJILLO [facility] [facility] 1950 Planned Disposition: Home Anticipated Discharge Date: Discharge Date: Expected LOS: Initial Reviewer: [email or web address] Initial Review Date: 07/30/2018 Generated: 07/30/18 7:57 pm DCPIA - Discharge Planning Initial Assessment Updated by [email or web address]: Cristy Neal on 07/30/18 6:57 pm * Is the patient Alert and Oriented? Yes * How many steps to enter\exit or inside your home? * PCP MILADYS * [facility] ORDER * Preadmission Environment Home with Family * ADLs Independent * Other Equipment CPM. REAGAN LUU * List name and contact numbers for known caregivers / representatives who currently or will assist patient after discharge: EZ TRUJILLO - - [phone] * Verbal permission to speak to the caregivers and representatives has been obtained from the patient. Yes * Community resources currently utilized None * Additional services required to return to the preadmission environment? No * Can the patient safely return to the preadmission environment? Yes * Has this patient been hospitalized within the prior 30 days at any hospital? No Patient Name: FAHEEM TRUJILLO Page [id number] at 1857 All edits/amendments must be made on the electronic document DICTATION DATE: 07/30/181855 PORTABLE FEED MILL OPERATOR: JOVANI 07/30/181855 RPT#: [id number] DC DATE: STATUS: ADM IN [facility] [address] [place] [address] END OF REPORT
--- NOTE | 2018-07-30 19:03 | MORECARE ---
CASE MANAGEMENT DISCHARGE SUMMARY PATIENT: FAHEEM TRUJILLO UNIT: [id number] ADM DATE: 07/30/18 AGE: 68 : 51 SEX: M ROOM/BED: D[facility] AUTHOR: VANDANA,DOC PHYSICIAN: REFERRING PHYSICIAN: TEJAL MCGRATH MD DATE OF SERVICE: 07/30/18 Discharge Plan Patient Name: FAHEEM TRUJILLO Facility: [facility]:[place] : 1950 Planned Disposition: Home Anticipated Discharge Date: Discharge Date: Expected LOS: Initial Reviewer: [email or web address] Initial Review Date: 07/30/2018 Generated: 07/30/18 8:03 pm Comments DCP- Discharge Planning Updated by [email or web address]: Cristy Neal on 07/30/18 6:[address] Patient Name: FAHEEM TRUJILLO Admission Status: Elective Accout number: [id number] Admission Date: 07-30-2018 : 1950 Admission Diagnosis: Attending: TEJAL MCGRATH Current LOS: 1 Anticipated DC Date: Planned Disposition: Home Primary Insurance: [address] [facility] Discharge Planning Comments: CM met with patient and spouse (Citlali) at bedside after explaining CM role and obtaining verbal consent. Patient lives at home with his Citlali and plans to return there upon discharge. Patient feels this would be a safe discharge. CM discussed availability / needs of home health and medical equipment. Patient has already got his CPM, walker, and BSC. Patient denies any discharge needs at this time. CM will set up outpatient physical therapy @ [facility]. Patient states he will have his drive him home upon discharge. CM will continue to follow and assist as needed with discharge planning / needs. Maintenance Truck Driver: Cristy Neal DCPIA - Discharge Planning Initial Assessment Updated by [email or web address]: Cristy Neal on 07/30/18 6:57 pm * Is the patient Alert and Oriented? Yes * How many steps to enter\exit or inside your home? * PCP MILADYS * [facility]acy [facility]IL [facility] * Preadmission Environment Home with Family * ADLs Independent * Other Equipment CPM. WALKER, BSC * List name and contact numbers for known caregivers / representatives who currently or will assist patient after discharge: CITLALI TRUJILLO - - [phone] * Verbal permission to speak to the caregivers and representatives has been obtained from the patient. Yes * Community resources currently utilized None * Additional services required to return to the preadmission environment? No * Can the patient safely return to the preadmission environment? Yes * Has this patient been hospitalized within the prior 30 days at any hospital? No Last DP export: 07/30/18 5:57 pm Patient Name: FAHEEM TRUJILLO Page [phone] at 1903 All edits/amendments must be made on the electronic document DICTATION DATE: 07/30/181902 PAINT STRIPING MACHINE OPERATOR: JOVANI 07/30/181902 RPT#: [id number] DC DATE: STATUS: ADM IN [facility] [address] [place] [address] END OF REPORT
--- NOTE | 2018-07-30 23:02 | NUR ---
1900 REPORT RECEIVED CARE ASSUMED. PT LAYING IN BED RESTING. ASSESSMENT DONE SEE FLOW SHEET. VSS. CPM MACHINE REMOVED. WILL CONTINUE TO MONITOR. 2100 MEDS GIVEN PER JUN. NO DIFFICULTY SWALLOWING NOTED. WILL CONITNUE TO MONITOR. 230 REASSESSMENT DONE SEE FLOW SHEET. VSS. NO SIGNS OF ACUTE DISTRESS NOTED. WILL CONITNUE TO MONITOR.
[2018-07-31] VITALS (12 sets, daily range): BP systolic 92–122; BP diastolic 38–62
--- NOTE | 2018-07-31 01:00 | NUR ---
PT RESTING IN BED. VSS. NO SIGNS OF ACUTE DISTRESS NOTED WILL CONTINUE TO MONITOR.
--- NOTE | 2018-07-31 03:00 | NUR ---
REASSESSMENT DONE SEE FLOW SHEET. VSS. NO SIGNS OF ACUTE DISTRESS NOTED WILL CONITNUE TO MONITOR.
--- NOTE | 2018-07-31 05:00 | NUR ---
CPM PUT INTO PLACE. VSS. NO SIGNS OF ACUTE DISTRESS. WILL CONTINUE TO MONITOR. IO COLLECTED. DAILY WEIGHT COLLECTED.
[2018-07-31 06:07] LABS: MCHC 31.5 g/dL (31.0-37.0); MCV 95.2 fL (80.0-100.0); MEAN PLATELET VOLUME 9.8 fL (7.4-10.4); RDW 14.8 % (11.5-14.5); WBC 7.8 10x3/uL (4.8-10.8)
[2018-07-31 06:30] LABS: HEMATOCRIT 31.4 % (42.0-54.0); HEMOGLOBIN 9.9 g/dL (13.5-17.5); RBC 3.3 10x6/uL (4.20-6.10)
[2018-07-31 06:31] LABS: ALBUMIN 2.9 g/dL (3.4-5.0); ANION GAP 12.8 mmol/L (8-16); BILIRUBIN - TOTAL 0.39 mg/dL (0.2-1.3); CALCIUM 7.4 mg/dL (8.5-10.1); CARBON DIOXIDE 24.6 mmol/L (21.0-32.0); CREATININE - SERUM 1.2 mg/dL (0.6-1.3); MAGNESIUM - SERUM 1.8 mg/dL (1.8-2.4); PHOSPHOROUS 3.4 mg/dL (2.5-4.9); POTASSIUM - SERUM 4.4 mmol/L (3.5-5.1); PROTEIN - SERUM 5.9 g/dL (6.4-8.2)
--- NOTE | 2018-07-31 11:25 | NUR ---
0745-PT AWAKE AND ALERT-PO PAIN MED GIVEN-Jeovanny HOUSE RN WITH ORTHOPEDIC SERVICES AT BEDSIDE-ICE PACK PLACED DIRECTED 0950-PHYSICAL THERAPY AT [facility]-DR MCGRATH AT BEDSIDE-SPOKE WITH PT REGARDING COURSE OF TREATMENT AND AMBULATION EXPECTATIONS 1010-ASSISTED TO BEDSIDE CHAIR WITH WALKER -KALEB
--- NOTE | 2018-07-31 13:53 | NUR ---
AMBULATED WITH PHYSICAL [id number] WITH GOOD BALANCE AND STRIDE RETURNED TO BED WITH CMS MACHINE ON ICE PACK PLACED-RESTING COMFORTABLY
--- NOTE | 2018-07-31 16:11 | MORECARE ---
CASE MANAGEMENT DISCHARGE SUMMARY PATIENT: FAHEEM TRUJILLO UNIT: [id number] ADM DATE: 07/30/18 AGE: 68 : 51 SEX: M ROOM/BED: D[facility] AUTHOR: VANDANA,DOC PHYSICIAN: REFERRING PHYSICIAN: TEJAL MCGRATH MD DATE OF SERVICE: 07/31/18 Discharge Plan Patient Name: FAHEEM TRUJILLO Facility: [facility]:[place] : 1950 Planned Disposition: Home Anticipated Discharge Date: Discharge Date: Expected LOS: Initial Reviewer: [email or web address] Initial Review Date: 07/30/2018 Generated: 07/31/18 5:11 pm Comments DCP- Discharge Planning Updated by [email or web address]: Cristy Neal on 07/31/18 3:[address] CM sent outpatient order for physical therapy to [facility] therapy department. Patient is scheduled to start therapy FridayAugust 03 @ 11:00. CM will continue to follow and assist with discharge planning / needs. DCP- Discharge Planning Updated by [email or web address]: Cristy Neal on 07/30/18 6:[address] Patient Name: FAHEEM TRUJILLO Admission Status: Elective Accout number: [id number] Admission Date: 07-30-2018 : 1950 Admission Diagnosis: Attending: TEJAL MCGRATH Current LOS: 1 Anticipated DC Date: Planned Disposition: Home Primary Insurance: [id number] [facility] Discharge Planning Comments: CM met with patient and spouse (Citlali) at bedside after explaining CM role and obtaining verbal consent. Patient lives at home with his Citlali and plans to return there upon discharge. Patient feels this would be a safe discharge. CM discussed availability / needs of home health and medical equipment. Patient has already got his CPM, walker, and BSC. Patient denies any discharge needs at this time. CM will set up outpatient physical therapy @ [facility]. Patient states he will have his drive him home upon discharge. CM will continue to follow and assist as needed with discharge planning / needs. Oracle Application Architect: Cristy Neal DCPIA - Discharge Planning Initial Assessment Updated by [email or web address]: Cristy Neal on 07/30/18 6:57 pm * Is the patient Alert and Oriented? Yes * How many steps to enter\exit or inside your home? * PCP MILADYS * [facility]acy [facility] * Preadmission Environment Home with Family * ADLs Independent * Other Equipment KELLY. REAGAN LUU * List name and contact numbers for known caregivers / representatives who currently or will assist patient after discharge: CITLALI TRUJILLO - - [phone] * Verbal permission to speak to the caregivers and representatives has been obtained from the patient. Yes * Community resources currently utilized None * Additional services required to return to the preadmission environment? No * Can the patient safely return to the preadmission environment? Yes * Has this patient been hospitalized within the prior 30 days at any hospital? No Last DP export: 07/30/18 6:03 pm Patient Name: FAHEEM TRUJILLO Page [id number] at 1611 All edits/amendments must be made on the electronic document DICTATION DATE: 07/31/181610 BINDING END STITCHER: JOVANI 07/31/181610 RPT#: [id number] DC DATE: STATUS: ADM IN [facility] [address] [place] [address] END OF REPORT
--- NOTE | 2018-07-31 17:22 | NUR ---
RESTING COMFORTABLY-REQUESTED TO REMAIN IN BED AT THIS TIME-DINNER PLACED IN RM
--- NOTE | 2018-07-31 17:30 | NUR ---
1600-CM MACHINE TURNED OFF AND REMOVED FROM BED-
--- NOTE | 2018-07-31 20:51 | NUR ---
1900 REPORT RECEIVED CARE ASSUMED. ASSESSMENT DONE SEE FLOW SHEET. PT ABLE TO AMBULATE COMPLETE [place]AG[place] THROUGH OUT [address] WITH WALKER MINIMAL ASSSITANCE GIVEN. VSS. 2100 MEDS GIVEN PER JUN. NO DIFFICULTY SWALLOWING NOTED.
--- NOTE | 2018-07-31 23:04 | NUR ---
REASSESSMENT DONE SEE FLOW SHEET. DISLODGED IV L HAND. PER PT REQUEST WOULD LIKE TO TRY NO IV AND USE PO PAIN MANAGEMENT. VSS. PT VERBALIZES NO DISTRESS WILL CONTINUE TO MONITOR.
--- NOTE | 2018-07-31 23:15 | NUR ---
DR LERMA INFORMED OF PT STATUS. ORDER RECEIVED SEE DIMITRI. K PUMP OKAYED FOR COLD THERAPY WILL CONITNUE TO MONITOR.
[2018-08-01] VITALS: BP 115/59
--- NOTE | 2018-08-01 03:12 | NUR ---
0100 PT IN BED RESTING VSS. NO SIGNS OF ACUTE DISTRESS. 0300 REASSESSMENT DONE SEE FLOW SHEET VSS.
[2018-08-01 04:15] VITALS: BP 114/48
--- NOTE | 2018-08-01 05:00 | NUR ---
R WRIST PIV STARTED. IV CONNECTED. MARKETING AND OUTREACH COORDINATOR REESTABLISHED. CPM PUT INTO PLACE. PARTIAL BED BATH GIVEN. PARTIAL LINEN CHANGE PROVIDED. PT VERBALIZES NO COMPLAINTS WILL CONITNUE TO MONITOR.
[2018-08-01 06:09] LABS: HEMATOCRIT 29.9 % (42.0-54.0); HEMOGLOBIN 9.5 g/dL (13.5-17.5); MCH 29.9 pg (26.0-34.0); MCHC 31.8 g/dL (31.0-37.0); MEAN PLATELET VOLUME 9.6 fL (7.4-10.4); RBC 3.18 10x6/uL (4.20-6.10); RDW 14.6 % (11.5-14.5); WBC 7.6 10x3/uL (4.8-10.8)
[2018-08-01 10:30] VITALS: BP 122/39
[2018-08-01 14:30] VITALS: BP 149/69
--- NOTE | 2018-08-01 15:58 | NUR ---
1400-AMBULATED WITH PHYSICAL THERAPY-USE IF WALKER AND GOOD STRIDE-DILAUDID LOANS CONSULTANT NEEDED 1445-DR PATEL AT [facility] 1600-FAMILY AT [facility]
--- NOTE | 2018-08-01 18:41 | NUR ---
APPEARS TO BE RESTING
[2018-08-01 20:00] VITALS: BP 100/59
--- NOTE | 2018-08-01 20:43 | NUR ---
2000 PT RESTING IN BED COMFORTABLEY REPOSITIONED PER PT REQUEST. VSS. ASSESSMENT DONE SEE FLOW SHEET. 2042 MEDS GIVEN PER JUN. VSS WILL CONITNUE TO MONITOR.
--- NOTE | 2018-08-01 22:00 | NUR ---
PT REPOSITIONED FOR COMFORT. PER PT REQUEST WILL ONLY TAKE BP OR HAVE TELEMETRY ON IN AM. WILL CONINTUE TO MONITOR. NO SIGNS OF ACUTE DISTRESS VIEWED. WILL CONITNUE TO MONITOR.
--- NOTE | 2018-08-02 00:58 | NUR ---
PT RESTING COMFORTABLEY. NO SIGNS OF ACUTE DISTRESS NOTED WILL CONTINUE TO MONITOR.
--- NOTE | 2018-08-02 05:00 | NUR ---
PT PLACED ON CPM MACHINE. PARTIAL LINEN CHANGE. NO SIGNS OF ACUTE DISTRESS NOTED. WILL CONTINUE TO MONITOR.
[2018-08-02] MEDS ORDERED: SOMA350 MG PO (09:43)
[2018-08-02] MEDS ORDERED: DILAUDID2 MG PO (09:43)
[2018-08-02] MEDS ORDERED: ZOFRAN ODT4 MG/UDTAB PO (09:45)
--- NOTE | 2018-08-02 10:16 | NUR ---
8718-RECIEVEED AWAKE AND ALERT-ASSISTED WITH BREAKFEST TRAY- 1000-DR MCGRATH AT BEDSIDE -SPOKE WITH PT AND REGARDING FOLLOW UP CARE-PHYSICAL THERAPY-AND PRESCRIPTIONS-R WRIST IV D/C'D WITH TIP INTACT-TOLERATED WELL- 3730-LEFT VIA WHEELCHAIR
--- NOTE | 2018-08-03 08:33 | MORECARE ---
CASE MANAGEMENT DISCHARGE SUMMARY PATIENT: FAHEEM TRUJILLO UNIT: [id number] ADM DATE: 07/30/18 AGE: 68 : 51 SEX: M ROOM/BED: D[facility] AUTHOR: VANDANA,DOC PHYSICIAN: REFERRING PHYSICIAN: TEJAL MCGRATH MD DATE OF SERVICE: 08/03/18 Discharge Plan Patient Name: FAHEEM TRUJILLO Facility: [facility]:[place] : 1950 Planned Disposition: Home Anticipated Discharge Date: Discharge Date: 08/02/2018 Expected LOS: Initial Reviewer: [email or web address] Initial Review Date: 07/30/2018 Generated: 08/03/18 9:33 am Comments DCP- Discharge Planning Updated by [email or web address]: Cristy Neal on 07/31/18 3:[address] CM sent outpatient order for physical therapy to [facility] therapy department. Patient is scheduled to start therapy FridayAugust 03 @ 11:00. CM will continue to follow and assist with discharge planning / needs. DCP- Discharge Planning Updated by [email or web address]: Cristy Neal on 07/30/18 6:[address] Patient Name: FAHEEM TRUJILLO Admission Status: Elective Accout number: [id number] Admission Date: 07-30-2018 : 1950 Admission Diagnosis: Attending: TEJAL MCGRATH Current LOS: 1 Anticipated DC Date: Planned Disposition: Home Primary Insurance: [employer] [facility] Discharge Planning Comments: CM met with patient and spouse (Citlali) at bedside after explaining CM role and obtaining verbal consent. Patient lives at home with his Citlali and plans to return there upon discharge. Patient feels this would be a safe discharge. CM discussed availability / needs of home health and medical equipment. Patient has already got his CPM, walker, and BSC. Patient denies any discharge needs at this time. CM will set up outpatient physical therapy @ [facility]. Patient states he will have his drive him home upon discharge. CM will continue to follow and assist as needed with discharge planning / needs. Manager Architecture: Cristy Neal DCPIA - Discharge Planning Initial Assessment Updated by [email or web address]: Cristy Neal on 07/30/18 6:57 pm * Is the patient Alert and Oriented? Yes * How many steps to enter\exit or inside your home? * PCP MILADYS * [facility]acy [facility] MAIL ORDER * Preadmission Environment Home with Family * ADLs Independent * Other Equipment CPM. REAGAN LUU * List name and contact numbers for known caregivers / representatives who currently or will assist patient after discharge: CITLALI TRUJILLO - - [phone] * Verbal permission to speak to the caregivers and representatives has been obtained from the patient. Yes * Community resources currently utilized None * Additional services required to return to the preadmission environment? No * Can the patient safely return to the preadmission environment? Yes * Has this patient been hospitalized within the prior 30 days at any hospital? No Last DP export: 07/31/18 3:11 pm Patient Name: FAHEEM TRUJILLO Page [phone] at 0833 All edits/amendments must be made on the electronic document DICTATION DATE: 08/03/18832 GIRL FRIDAY: JOVANI 08/03/18832 RPT#: [id number] DC DATE:08/02/18 STATUS: DIS IN [facility] [address] [place] [address] END OF REPORT
== END 2018-08-02 10:35 | disposition home or self-care (01) | DRG 470 ==
LOC: D.CVICU 07-30 05:30 → D.SDCHOLD 07-30 05:30 → D.CVICU 07-30 09:47 → D.SDCHOLD 07-30 10:00 → D.CVICU 08-02 10:35
PROVIDERS: Internal Medicine Pulmonary Disease; ADMIT Orthopaedic Surgery; ATTEND Orthopaedic Surgery
PROC: 0SRD0JZ Replacement of Left Knee Joint with Synthetic Substitute, Open Approach (ICD-10-PCS; principal; 2018-07-30 07:30)
DX: M17.0 Bilateral primary osteoarthritis of knee (principal); K21.9 Gastro-esophageal reflux disease without esophagitis; I10 Essential (primary) hypertension; E78.5 Hyperlipidemia, unspecified; G47.33 Obstructive sleep apnea (adult) (pediatric); I25.10 Atherosclerotic heart disease of native coronary artery without angina pectoris; N40.0 Benign prostatic hyperplasia without lower urinary tract symptoms; E11.9 Type 2 diabetes mellitus without complications; D64.9 Anemia, unspecified; L40.50 Arthropathic psoriasis, unspecified; E03.9 Hypothyroidism, unspecified; M06.9 Rheumatoid arthritis, unspecified

== ENCOUNTER 2019-02-18 13:06 | Inpatient (IN) | payer BC ==
[~2019-02-18] VITALS: Ht 188 cm; Wt 113.4 kg
[~2019-02-18 13:06] MED LIST changes: +SOMA350 MG PO; +ZOFRAN ODT4 MG/UDTAB PO
[2019-03-03 12:31] LABS: BASOPHILS 0.4 % (0-2); EOSINOPHILS 2.6 % (0-7); HEMOGLOBIN 12.5 g/dL (13.5-17.5); IMMATURE GRANULOCYTES 0.4 % (0-5); LYMPHOCYTES 23.6 % (15-50); MCHC 31.3 g/dL (31.0-37.0); MCV 92.8 fL (80.0-100.0); MEAN PLATELET VOLUME 9.5 fL (7.4-10.4); MONOCYTES 7.5 % (2-11); NEUTROPHILS 65.5 % (40-80); RBC 4.31 10x6/uL (4.20-6.10); RDW 15.4 % (11.5-14.5); WBC 7.8 10x3/uL (4.8-10.8)
[2019-03-03 12:38] LABS: ANION GAP 14.8 mmol/L (8-16); CALCIUM 9.1 mg/dL (8.5-10.1); CREATININE - SERUM 1.3 mg/dL (0.6-1.3); POTASSIUM - SERUM 4.8 mmol/L (3.5-5.1)
[2019-03-03 13:07] LABS: APPEARANCE CLEAR (CLEAR); COLOR YELLOW (YELLOW); NITRITE NEGATIVE (NEGATIVE); SPECIFIC GRAVITY 1.015 (1.005-1.020)
[2019-03-03 13:08] LABS: BILIRUBIN NEGATIVE (NEGATIVE); GLUCOSE 1000 mg/dL (NEGATIVE); KETONE NEGATIVE (NEGATIVE); PROTEIN NEGATIVE (NEGATIVE); UROBILINOGEN NORMAL (NORMAL)
[2019-03-03 13:13] LABS: PLATELET COUNT 274 10x3/uL (130-400)
[2019-03-03 13:28] LABS: APTT 24.4 SECONDS (22.8-39.4); INR 1.05 (0.85-1.17); PROTIME 13.2 SECONDS (11.6-15.0)
[2019-03-08] VITALS (20 sets, daily range): BP systolic 96–140; BP diastolic 48–85; BMI 32.1
--- NOTE | 2019-03-08 12:04 | NUR ---
1100 PT RECIEVED FROM RECOVERY ROOM O2 4L NC R AC PIV AND L WRIST PIV, R AC PIV DCD PER PT REQUEST. LWRIST WITH 1/2NS 100ML/HR AND RESIDENCE HALL DIRECTOR INITIATED PER ORDERS, PULSES PALPABLE, R KNEE BANDAGE INTACT, TEDS AND SCDS APPLIED, AT BEDSIDE, SET UP SECURITY CODE, REFUSED LUNCH TRAY SPOKE WITH MARYURI HOUSE APN PT HAD QUESTION FOR CPM, STATED SHE WOULD ORDER
--- NOTE | 2019-03-08 14:19 | NUR ---
1200 PT REFUSED LUNCH TRAY 1345 CPM APPLIED 1400 SPOKE WITH MESERET LEVINE TO CLARIFY ANCEF ORDER, SPOKE WITH DR VASQUEZ FOR ORDER CLARIFICATION WELL
--- NOTE | 2019-03-08 19:30 | NUR ---
REC'D TO CARE, BS REPORT COMPLETE. PT AWAKENS EASILY, ALERT AND ORIENTED.VSS. R LEG IN CPM MACHINE, KNEE DSG C/D/I. IVF INFUSING TO L WRIST PIV, DSG C/D/I, SEE FLOWSHEET. PT REPORTS ADEQUATE PAIN RELIEF WITH DILAUDID MARSHMALLOW MACHINE OPERATOR. ALARMS ON AND C/L IN REACH.
--- NOTE | 2019-03-08 21:13 | NUR ---
DR. RAMILA ANDINO RE: PT HOME MEDS - NEW ORDERS REC'D.
--- NOTE | 2019-03-08 21:18 | NUR ---
CPM MACHINE OFF, ICE PACKS APPLIED. PHRARMACY CONTACTED FOR ZOFRAN ORDER CHANGED TO SL.
--- NOTE | 2019-03-08 23:20 | NUR ---
VSS. PT AWAKENS EASILY, DENIES NEEDS. ALARMS ON AND C/L IN REACH.
[2019-03-09] VITALS (24 sets, daily range): BP systolic 99–146; BP diastolic 46–82; Ht 188 cm; Wt 113.4 kg
--- NOTE | 2019-03-09 01:30 | NUR ---
RESTING WITH EYES CLOSED, NO SIGN OF DISTRESS.
--- NOTE | 2019-03-09 03:12 | NUR ---
REASSESSMENT PER FLOWSHEET, NO ACUTE CHANGES. PT ASSISTED TO L SIDE WITH PILLOWS. R HEEL BRIDGED. VSS. C/L IN REACH.
[2019-03-09 06:16] LABS: HEMATOCRIT 33.4 % (42.0-54.0); HEMOGLOBIN 10.1 g/dL (13.5-17.5); MCH 28.4 pg (26.0-34.0); MCHC 30.2 g/dL (31.0-37.0); MCV 93.8 fL (80.0-100.0); MEAN PLATELET VOLUME 9.9 fL (7.4-10.4); RBC 3.56 10x6/uL (4.20-6.10); RDW 15.4 % (11.5-14.5); WBC 6.8 10x3/uL (4.8-10.8)
--- NOTE | 2019-03-09 06:30 | NUR ---
PT REPOSITIONED SELF UP IN BED. CPM BACK ON PER ORDERS. PT GIVEN COFFEE PER REQUEST.
--- NOTE | 2019-03-09 07:21 | NUR ---
PT HAD 7 BEAT RUN OF ACCELERATED RHYTHM, DR MCGRATH CALLED AND ORDERED TO RESTART BISOPROLOL
[2019-03-09 07:33] LABS: ANION GAP 13.9 mmol/L (8-16); CALCIUM 7.5 mg/dL (8.5-10.1); CARBON DIOXIDE 26.8 mmol/L (21.0-32.0); CREATININE - SERUM 1.2 mg/dL (0.6-1.3); POTASSIUM - SERUM 4.7 mmol/L (3.5-5.1)
--- NOTE | 2019-03-09 10:26 | NUR ---
0700 PT RECIEVED IN BED ALERT AND ORIENTED, HOME CPAP WHILE SLEEPING, L WRIST PIV DRESSING CDI, R KNEE DRESSING CDI, PULSES PALPABLE,. TEDS/SCDS IN PLACE, USING CPM MACHINE, STATES PAIN IS CONTROLLED WITH SURGICAL SCHEDULER 0800 AM MEDS REVIEWED WITH PT AND MARYURI HOUSE GENDER STUDIES PROFESSOR 0900 TEKTURNA NOT AVAILABLE FROM PHARMACY, OKAYED TO TAKE HOME DOSE, WILL BRING 0930 DR VASQUEZ NOTIFIED OF EARLIER ARRHYTHMIA 1000 TAKEN OFF CPM, ICE APPLIED TO R KNEE.
--- NOTE | 2019-03-09 16:18 | NUR ---
As per Dr. Canales's order surgical dressing covering right knee was removed. Prevena dressing applied over incision and tubing attached to Ulta vac for hospital stay. Sri intact. Small amount of bruising noted on medial knee. No redness. Small amount of bloody drainage without odor. Wound care will continue monitoring.
--- NOTE | 2019-03-09 18:01 | NUR ---
1100 ASSISTED UP TO CHAIR WITH PT 1200 REFUSED LUNCH 1400 AMBULATED IN HALLWAY WITH PT, DRESSING CHANGED BY WOUND CARE NURSE 1500 ASSISTED BACK TO BED, CPM APPLIED PER PT REQUEST 1700 ATE 25% DINNER
--- NOTE | 2019-03-09 19:15 | NUR ---
REC'D TO CARE, CARE TRANSITION MGR PER FLOWSHEET. VSS. PT ALERT AND ORIENTED. R LEG IN CPM PER ORDERS. R KNEE DSG TO WOUND VAC, C/D/I. PT REPORTS ADEQUATE PAIN RELIEF WITH DELIVERY DRIVER/CUSTOMER SERVICE - SEE FLOWSHEET. ALARMS ON AND C/L IN REACH.
--- NOTE | 2019-03-09 20:41 | NUR ---
CPM OFF. HEEL BRIDGED. PT REPOSITIONED FOR COMFORT.
--- NOTE | 2019-03-09 21:39 | NUR ---
ADMIN PRN SOMA PER PT REQUEST. I.S. 3500. HOME BIPAP ON. PT DENIES OTHER NEEDS. ALARMS ON AND C/L IN REACH.
--- NOTE | 2019-03-09 23:20 | NUR ---
PT AWAKENS EASILY, DENIES NEEDS. VSS. C/L IN REACH.
[2019-03-10] VITALS: BP 109/61
--- NOTE | 2019-03-10 01:09 | NUR ---
PT ASSISTED WITH REPOSITONING, R LEG ELEVATED AND ICE APPLIED. FRESH WATER PROVIDED. C/L IN REACH.
[2019-03-10 04:00] VITALS: BP 118/70
--- NOTE | 2019-03-10 04:00 | NUR ---
VSS. PT DENIES NEEDS. C/L IN REACH.
--- NOTE | 2019-03-10 06:00 | NUR ---
PT UP IN BED, AWAKE. GIVEN FRESH COFFEE PER REQUEST. C/L IN REACH.
--- NOTE | 2019-03-10 07:44 | NUR ---
SHIFT REPORT RECEIVED. ALERT AND ORIENTED. RESTING COMFORTABLY IN BED. WOUND VAC TO RIGHT KNEE IN PLACE. RATES PAIN 6/10 CONSTANT TO RIGHT KNEE. ON ROOM AIR. PIV TO L-WRIST WITH 1/2NS KVO. DILAUDID SPA THERAPIST. SEE FLOWSHEET FOR SPA THERAPIST DOSE. NO FEVER NOTED. TEDS AND SCD ON BILAT LE. COMPLETE ASSESSMENT CHARTED IN FLOWSHEET
--- NOTE | 2019-03-10 09:37 | NUR ---
AMBULATED UP AND DOWN THE [place]ARTINE[place] WITH PHYSICAL THERAPY. TOLERATED WELL. PERCOCET 10MG TAB GIVEN BEFORE AMBULATION. DILAUDID TABULAR TYPIST DC'D PER ORDERS. 1/2 NS DC'D PER ORDERS. COMPLETE LINEN CHANGE PROVIDED. AM MEDS HAVE BEEN GIVEN. CALL LIGHT IN REACH. NO FURTHER NEEDS AT THIS TIME. WILL CONTINUE TO MONITOR.
[2019-03-10 10:34] VITALS: BP 99/51
--- NOTE | 2019-03-10 10:41 | CN ---
PATIENT NAME:FAHEEM TRUJILLO MEDICAL RECORD: [id number] : [birth year] LOCATION:[id number] ADMIT DATE: 03/08/19 ACCOUNT: [id number] CONSULTING PHYSICIAN: YANE VASQUEZ MD REFERRING PHYSICIAN: TEJAL MCGRATH MD DATE OF CONSULTATION: 03/08/2019 CARDIOLOGY CONSULTATION ADMITTING DIAGNOSES: 1. Postop evaluation knee surgery. 2. Anticoagulation antiplatelet status. 3. Coronary artery disease. 4. Previous cardiac stenting. 5. Hypertension. 6. Hyperlipidemia. 7. Noninsulin-dependent diabetes. 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 He was taken off his Effient for a knee operation. He is having no complication from the standpoint of the knee operation. This is postop day 0. He has had no chest pain or chest discomfort. His blood pressure has been under control with Tekturna. Hyperlipidemia, has been under control with simvastatin. PHYSICAL EXAMINATION: CONSTITUTIONAL/GENERAL APPEARANCE: Well nourished, well developed, appears stated age. EYES: Lids and conjunctivae noninjected. No discharge. No pallor. ENT: Lips within normal limit. No cyanosis. No pallor. NECK: Carotid arteries, bilateral normal upstroke. No bruits. No thrills. No jugular venous pressure or distention. CERVICAL LYMPH NODES: Nontender. Nonenlarged. THYROID: Not enlarged. No nodules. CARDIOVASCULAR: Precordial exam, nondisplaced. No heaves or pericardial thrills. Rate and rhythm, regular. Heart sounds, normal S1, normal S2. No S3, no gallop, no rub. Systolic murmur, not heard. Diastolic murmur, not heard. RESPIRATORY: Respiratory effort, unlabored. Normal curvature. No thoracic deformity. No chest wall tenderness. Percussion, resonant. Auscultation, clear. No wheezes, no rales, no rhonchi. ABDOMEN: Soft, nondistended, nontender. No abdominal pain, no vomiting and normal appetite. MUSCULOSKELETAL: No joint tenderness, normal gait, normal tone. SKIN: Warm and dry. OVERALL IMPRESSION: Stable from cardiac standpoint, status post PTCA stent, would restart the Effient tomorrow barring any bleeding complications from a surgical standpoint with 60 mg of Effient given tomorrow 10 mg day thereafter, and at this time, no other cardiac workup or treatment is necessary. TRANSINT:[id number] Voice Confirmation ID: [id number] DOCUMENT ID: [id number] CONSULT REPORT [id number] FAHEEM TRUJILLO, YANE DYKES at 1041 CC: [id number] DICTATION DATE: 03/08/19 1601 PAPER RULER: 03/08/19 1840 ADM IN [facility] [id number] [place] [address]
--- NOTE | 2019-03-10 12:02 | NUR ---
SPOUSE AT BEDSIDE. DILAUDID 4MG PO GIVEN FOR PAIN PER ORDERS. WILL CONTINUE TO MONITOR.
[2019-03-10] MEDS ORDERED: ELIQUIS2.5 MG PO (12:41)
[2019-03-10] MEDS ORDERED: DILAUDID2 MG PO (12:45)
--- NOTE | 2019-03-10 13:27 | NUR ---
AMBULATED WITH PHYSICAL THERAPY. TOLERATED WELL. WILL CONTINUE TO MONITOR.
--- NOTE | 2019-03-10 15:07 | NUR ---
PT BEING DISCHARGED HOME. INSTRUCTIONS REVIEWED WITH PT AND SPOUSE. PRESCRIPTION FRO ELIQUIS AND DILAUDID GIVEN TO PT. LEFT WRIST PIV DC'D WITH CATH TIP INTACT. NO FURTHER NEEDS AT THIS TIME.
--- NOTE | 2019-03-10 15:18 | MORECARE ---
CASE MANAGEMENT DISCHARGE SUMMARY PATIENT: FAHEEM TRUJILLO T UNIT: [id number] ADM DATE: 03/08/19 AGE: 68 : 52 SEX: M [facility] AUTHOR: DEREK ROSS PHYSICIAN: REFERRING PHYSICIAN: TEJAL MCGRATH MD DATE OF SERVICE: 03/10/19 Discharge Plan Patient Name: FAHEEM TRUJILLO [facility] : 1950 Planned Disposition: Home Anticipated Discharge Date: Discharge Date: Expected LOS: Initial Reviewer: [email or web address] Initial Review Date: 03/10/2019 Generated: 03/10/19 4:17 pm Patient Name: FAHEEM TRUJILLO Page 49149 at 1518 All edits/amendments must be made on the electronic document DICTATION DATE: 03/10/191516 SHEETING PULLER: JOVANI 03/10/191516 RPT#: [id number] DC DATE: STATUS: ADM IN [facility] [address] [place] [address] END OF REPORT
--- NOTE | 2019-03-10 15:19 | NUR ---
PT AMBULATED TO PERSONAL VEHICLE AT THIS TIME. PERSONAL BELONGINGS SENT WITH PATIENT. DISCHARGE PAPERS GIVEN.
--- NOTE | 2019-03-10 15:28 | MORECARE ---
CASE MANAGEMENT DISCHARGE SUMMARY PATIENT: FAHEEM TRUJILLO UNIT: [id number] ADM DATE: 03/08/19 AGE: 68 : [birth year] SEX: M ROOM/BED: D[facility] AUTHOR: VANDANA,DOC PHYSICIAN: REFERRING PHYSICIAN: TEJAL MCGRATH MD DATE OF SERVICE: 03/10/19 Discharge Plan Patient Name: FAHEEM TRUJILLO Facility: [facility]:[place] : 1950 Planned Disposition: Home Anticipated Discharge Date: Discharge Date: 03/10/2019 Expected LOS: Initial Reviewer: [email or web address] Initial Review Date: 03/10/2019 Generated: 03/10/19 4:27 pm Comments DCP- Discharge Planning Updated by [email or web address]: Cristy Neal on 03/10/19 2:[address] Patient Name: FAHEEM TRUJILLO Admission Status: Elective Accout number: [id number] Admission Date: 03-08-2019 : 1950 Admission Diagnosis: Attending: TEJAL MCGRATH Current LOS: 2 Anticipated DC Date: Planned Disposition: Home Primary Insurance: [employer] [facility] Discharge Planning Comments: CM met with patient at bedside after explaining CM role and obtaining verbal consent. Patient lives at home with his Citlali where he is independent with his care and plans to return there upon discharge. Patient feels this would be a safe discharge. CM discussed availability / needs of home health and medical equipment. Patient denies any discharge needs at this time. Patient states he will have his family drive him home upon discharge. Citlali stated that patient CPM will be delivered in am. CM set up patient outpatient therapy for 03/11/19 @ 1300 CM will continue to follow and assist as needed with discharge planning / needs. Armature Winder Repair: Crsity Neal DCPIA - Discharge Planning Initial Assessment Updated by [email or web address]: Cristy Neal on 03/10/19 3:24 pm * How many steps to enter\exit or inside your home? * PCP [facility] * Pharmacy [facility] * Preadmission Environment Home with Family * ADLs Independent * Other Equipment WALKER, CANE, BSC, TO DELIVER CPM ONCE DISCHARGED * List name and contact numbers for known caregivers / representatives who currently or will assist patient after discharge: CITLALI TRUJILLO - [phone] * Verbal permission to speak to the caregivers and representatives has been obtained from the patient. Yes * Community resources currently utilized None * Additional services required to return to the preadmission environment? No * Can the patient safely return to the preadmission environment? Yes * Has this patient been hospitalized within the prior 30 days at any hospital? No Patient Name: FAHEEM TRUJILLO Page [id number] at 1528 All edits/amendments must be made on the electronic document DICTATION DATE: 03/10/191526 GROCERY SACKER: JOVANI 03/10/191526 RPT#: [id number] DC DATE:03/10/19 STATUS: DIS IN [facility] [address] [place] [address] END OF REPORT
--- NOTE | 2019-03-11 08:37 | OP ---
PATIENT NAME: FAHEEM TRUJILLO MEDICAL RECORD: [id number] :[birth year] LOCATION:[facility] ADMISSION DATE:03/08/19 SURGEON: TEJAL MCGRATH MD DATE OF OPERATION: 03/08/2019 PREOPERATIVE DIAGNOSIS: Degenerative arthritis of the right knee. POSTOPERATIVE DIAGNOSIS: Degenerative arthritis of the right knee. PROCEDURE: Right total knee arthroplasty. SURGEON: Tejal Mcgrath MD ANESTHESIA: General. INTRAOPERATIVE COMPLICATIONS: None. SUMMARY OF PATHOLOGIC FINDINGS: Severe degenerative arthritis was seen tricompartmentally, worse on the medial aspect consistent with the patient's preoperative diagnosis. OPERATIVE SUMMARY IN DETAIL: After obtaining the appropriate preoperative orthopedic surgery consent as well as anesthetic consultation, evaluation and clearance, the patient was brought to the operating room and placed on the operating table in supine position. After adequate general laryngeal mask airway was administered, tourniquet was placed on the proximal aspect of the right lower extremity. Right lower extremity was then prepped and draped in routine sterile fashion. Leg was elevated and exsanguinated. Tourniquet was inflated to 350 mmHg. Routine midline incision was taken down for paramedian arthrotomy. The patella was everted, distal femur was exposed. Soft tissue excision was done in the usual fashion followed by creation of intramedullary guide hole for intramedullary guided distal femoral cut. Having completed this, the entire proximal tibia was exposed. Further soft tissue excision was then followed by creation of intramedullary guide hole for intramedullary guided cut. Appropriate measurements were taken. Distal chamfer cuts were then made. Trials were then put into place that being a size 6 distal femur, size 13 polyethylene insert, size 6 tibial baseplate, and a size 33 x 9 symmetric patella which ironically was exactly what was required on the other knee. After the trials were taken through a range of motion and found to be stable in all planes, distal femoral and proximal tibial preparations, this was followed by excision of the arthritic articular surface of the patella. It was then prepared for patellar resurfacing. Having completed this, the wound was then irrigated with pulsatile lavage regulatory compliance officer. Bone ends were dried. Final components were cemented in place, all excess cement was removed. After the cement was allowed to harden, the knee was taken through range of motion and found to be stable in all planes with good patellar tracking. The wound was then filled with vancomycin, tobramycin a gram each followed by closure by Rich Planzo with #2 Ethibond followed by #1 Vicryl, 2-0 Vicryl and skin santos. Sterile dressings were applied. The patient was awakened and taken to the recovery room in stable condition. All final needle and sponge counts were correct. TRANSINT:[id number] Voice Confirmation ID: [id number] DOCUMENT ID: [id number] OPERATIVE REPORT [id number] FAHEEM TRUJILLO MD, TEJAL HOLDER at 0837 CC: [id number] DICTATION DATE: 03/10/19 1302 BRASSWIND INSTRUMENT REPAIRER: 03/10/19 1333 DIS IN 03/10/19 [facility] [address] [place] [address]
== END 2019-03-10 15:21 | disposition home or self-care (01) | DRG 470 ==
LOC: D.SDCHOLD 03-08 05:10 → D.CVICU 03-08 05:10 → D.SDCHOLD 03-08 07:30 → D.CVICU 03-08 11:07
PROVIDERS: ADMIT Orthopaedic Surgery; ATTEND Orthopaedic Surgery
PROC: 0SRC0J9 Replacement of Right Knee Joint with Synthetic Substitute, Cemented, Open Approach (ICD-10-PCS; principal; 2019-03-08 07:30)
DX: M17.0 Bilateral primary osteoarthritis of knee (principal); G47.33 Obstructive sleep apnea (adult) (pediatric); K21.9 Gastro-esophageal reflux disease without esophagitis; I10 Essential (primary) hypertension; E78.5 Hyperlipidemia, unspecified; I25.10 Atherosclerotic heart disease of native coronary artery without angina pectoris; N40.0 Benign prostatic hyperplasia without lower urinary tract symptoms; E11.9 Type 2 diabetes mellitus without complications; L40.50 Arthropathic psoriasis, unspecified; D64.9 Anemia, unspecified; E03.9 Hypothyroidism, unspecified; I48.91 Unspecified atrial fibrillation

== ENCOUNTER → 2019-04-19 11:10 | Outpatient (CLI) | payer BC ==
[2019-03-09 13:25] VITALS: BMI 32.1
[~2019-04-19 11:10] MED LIST changes: +ELIQUIS2.5 MG PO
== END | disposition home or self-care (01) ==
LOC: D.RAD 11:10
PROVIDERS: ATTEND Orthopaedic Surgery
DX: M25.561 Pain in right knee (principal)

== ENCOUNTER 2019-09-28 07:15 | Day surgery (SDC) | payer BC ==
[~2019-09-28] VITALS: Ht 198.1 cm; Wt 115.9 kg
--- NOTE | ~2019-09-28 | OP ---
PATIENT NAME: FAHEEM TRUJILLO MEDICAL RECORD: [id number] :[birth year] LOCATION:D[facility] ADMISSION DATE: SURGEON: RAHEEM LOPEZ MD DATE OF OPERATION: 09/28/2019 PREOPERATIVE DIAGNOSIS: Heme-positive stools. POSTOPERATIVE DIAGNOSES: 1. Heme-positive stools. 2. Duodenal bulbar erosions, moderate duodenitis. 3. Mild antral gastritis. 4. Moderately sized hiatal hernia. 5. Discontinuous Z line, ? Manzano's. 6. Inlet patch, large. 7. Six colorectal polyps, all smaller than 1 cm, all sessile. PROCEDURE: 1. Esophagogastroduodenoscopy with antral and distal esophageal biopsies of the Z-line. 2. Gold probe coagulation at the Z line as well as in the antrum. 3. Persistent bleeding from the antrum after gold probe cautery. This responded well to 1 endoscopic clip placement. 4. Total colonoscopy to cecum. 5. Hot biopsy forceps polypectomies times 6. The risks, possible complications, and alternatives to procedure are well known to Dr. Trujillo. We elected to perform this procedure while he is fully anticoagulated on Effient. ENDOSCOPIC COURSE: The patient was conveyed to endoscopy suite electively on 09/28/2019. IV sedation was induced by the anesthesia staff. A bite block was inserted. A gastroscope was inserted into the mouth. It was advanced easily into the hypopharynx. The esophagus was easily intubated as were the stomach and duodenum. Upon withdrawal, retroflexed and angulus views were obtained. Cold endoscopic antral biopsies were obtained. The biopsy sites were cauterized with the bipolar gold probe. This slowed down the bleeding, but did not cause complete cessation of bleeding. The bleeding was completely controlled with the placement of 1 endoscopic clip. The patient has discontinuous Z line. This is worrisome for Manzano's. Utilizing the retroflex view, I obtained several cold endoscopic biopsies at the Z line. The biopsy sites were made hemostatic with the bipolar gold probe cautery. I then unretroflexed the scope and removed it under direct vision. I noted a significant inlet patch; however, I think that biopsying this would have shown no benefit and would only increase the patient's chance of bleeding. The patient was then turned 180 degrees and placed in the Barrios position. A digital rectal examination was performed. The prostate was mildly enlarged and was symmetric without nodules. A colonoscope was inserted through the anus. It was easily advanced to the cecum. The prep was excellent. I intubated the ileum, which appeared normal. I then slowly withdrew the endoscope. I dragged the folds. The pullback was greater than 15-minute pullback. I utilized normal imaging as well as narrow band imaging. Six sessile polyps, all smaller than 1 cm were removed in their OPERATIVE REPORT [id number] FAHEEM TRUJILLO utilizing the hot biopsy forceps polypectomy technique. A retroflexed view was obtained in the rectum. I then unretroflexed the scope and removed it under direct vision. There is no need for the patient to see me in the office. He can follow up with me here at the hospital. I am going to make sure that he is on an H2 sascha or PPI. TRANSINT:[id number] Voice Confirmation ID: [id number] DOCUMENT ID: [id number] RAHEEM LOPEZ MD CC: TEJAL CORDOBA, YANE VASQUEZ and FAHEEM TRUJILLO [id number] DICTATION DATE: 09/28/19942 DIRECTOR CONSUMER AFFAIRS: 09/28/19 2145 [facility] 09/28/19 [facility] [address] [place] [address]
[2019-09-28 06:37] VITALS: Ht 198.1 cm; Wt 115.9 kg
[2019-09-28 07:12] LABS: BASOPHILS 0.4 % (0-2); EOSINOPHILS 6.8 % (0-7); HEMATOCRIT 36.6 % (42.0-54.0); HEMOGLOBIN 11.5 g/dL (13.5-17.5); IMMATURE GRANULOCYTES 0.3 % (0-5); LYMPHOCYTES 26.6 % (15-50); MCH 28.3 pg (26.0-34.0); MCHC 31.4 g/dL (31.0-37.0); MCV 90.1 fL (80.0-100.0); NEUTROPHILS 55.9 % (40-80); PLATELET COUNT 251 10x3/uL (130-400); RBC 4.06 10x6/uL (4.20-6.10); RDW 16.7 % (11.5-14.5); WBC 6.7 10x3/uL (4.8-10.8)
[~2019-09-28 07:15] MED LIST changes: +BAYER CHEWABLE81 MG PO
[2019-09-28 07:17] LABS: ANION GAP 15.6 mmol/L (8-16); CALCIUM 8.1 mg/dL (8.5-10.1); CARBON DIOXIDE 25.2 mmol/L (21.0-32.0); CREATININE - SERUM 1.4 mg/dL (0.6-1.3); POTASSIUM - SERUM 3.8 mmol/L (3.5-5.1)
[2019-09-28 07:27] LABS: APTT 25.6 SECONDS (22.8-39.4); INR 1.08 (0.85-1.17)
--- NOTE | 2019-09-28 10:05 | NUR ---
PT DC INSTRUCTIONS REVIEWED, PT AND FAMILY VERBAILZE UNDERSTANDING. PT IV REMOVED AT THIS TIME, INTACT, NO REDNESS OR SWELLING NOTED AT SITE. IV SITE DRESSED WITH GAUZE AND BANDAID, BLEEDING CONTROLLED AT SITE AT THIS TIME.
--- NOTE | 2019-09-28 10:10 | NUR ---
PT LEAVING OPS AT THIS TIME VIA WC, NAD NOTED.
--- NOTE | 2019-09-28 12:51 | HP ---
PATIENT: FAHEEM TRUJILLO MEDICAL RECORD: [id number] ACCOUNT: [id number] [facility] : [birth year] ADMISSION DATE: 09/28/19 PCP: TEJAL CORDOBA MD HISTORY AND PHYSICAL EXAMINATION CHIEF COMPLAINT: Heme-positive stools. HISTORY OF PRESENT ILLNESS: The patient was found to have heme-positive stools by Dr. Cordoba. He has had no dysphagia. No epigastric tenderness or pain. No significant reflux. No change in bowel habits. No melena. No hematochezia. HOME MEDICINES: Reviewed. He is on Effient and has been on Effient. ALLERGIES: SIMVASTATIN, WHICH HE IS INTOLERANT OF. PAST MEDICAL AND SURGICAL HISTORY: Coronary artery disease, coronary stents, diabetes, hypothyroidism, on replacement therapy. Knee replacement. PHYSICAL EXAMINATION: GENERAL: The patient does not appear acutely ill. He does not appear chronically ill. VITAL SIGNS: Reviewed. EARS: External ears appear normal. EYES: Extraocular movements are intact. NECK: Trachea is midline. CHEST: No intercostal retraction. IMPRESSION: Heme-positive stool. PLAN: Will be EGD and colonoscopy. TRANSINT:[id number] Voice Confirmation ID: [id number] DOCUMENT ID: [id number] RAHEEM LOPEZ MD at 1251 CC: TEJAL CORDOBA and YANE VASQUEZ [id number] DICTATION DATE: 09/28/19 0803 BATCH OR CONTINUOUS STILL OPERATOR: 09/28/19 1152 [facility] 09/28/19 [place] [id number] [place] [id number]
== END 2019-09-28 10:10 | disposition home or self-care (01) ==
LOC: D.OPS 07:15
PROVIDERS: Anesthesiology; ATTEND Surgery
DX: R19.5 Other fecal abnormalities (principal); K26.9 Duodenal ulcer, unspecified as acute or chronic, without hemorrhage or perforation; K29.70 Gastritis, unspecified, without bleeding; K44.9 Diaphragmatic hernia without obstruction or gangrene; K63.5 Polyp of colon; E11.9 Type 2 diabetes mellitus without complications; E03.9 Hypothyroidism, unspecified; Z79.84 Long term (current) use of oral hypoglycemic drugs

== ENCOUNTER → 2019-10-25 10:10 | Outpatient (CLI) | payer BC ==
[2019-09-28 06:37] VITALS: BMI 29.5
== END | disposition home or self-care (01) ==
LOC: D.US 10:10
PROVIDERS: ATTEND Family Medicine
DX: R42 Dizziness and giddiness (principal)

== ENCOUNTER → 2019-10-29 08:40 | Outpatient (CLI) | payer BC ==
[2019-09-28 06:37] VITALS: BMI 29.5
== END | disposition home or self-care (01) ==
LOC: D.CT 08:40
PROVIDERS: ATTEND Family Medicine
DX: I65.22 Occlusion and stenosis of left carotid artery (principal)

== ENCOUNTER → 2019-11-23 12:37 | Outpatient (CLI) | payer BC ==
[2019-09-28 06:37] VITALS: BMI 29.5
[2019-11-23 16:35] LABS: MAGNESIUM - SERUM 1.3 mg/dL (1.8-2.4); POTASSIUM - SERUM 4.8 mmol/L (3.5-5.1)
== END | disposition home or self-care (01) ==
LOC: D.LAB 12:37
PROVIDERS: ATTEND Internal Medicine Cardiovascular Disease
DX: R60.0 Localized edema (principal)

== ENCOUNTER → 2020-10-26 10:43 | Outpatient (CLI) | payer MEDICARE, OTHER ==
[2020-06-04 08:53] VITALS: BMI 33.7
[~2020-10-26 10:43] MED LIST changes: +CARAFATE1 G PO; +FERROUS SULFAT325 MG PO; +MAG-OXIDE400 MG PO; +MYSOLINE250 MG PO; +TEMOVATE30 GM TOPICAL
== END | disposition home or self-care (01) ==
LOC: D.CT 10:30
PROVIDERS: ATTEND Family Medicine
DX: Z95.5 Presence of coronary angioplasty implant and graft (principal)